=== PATIENT | female | born 1970 | race African-American/Black ===

== ENCOUNTER 2023-01-18 20:18 | Inpatient (IN) | payer OTHER ==
[~2023-01-18] VITALS: Ht 175.3 cm; Wt 199.1 kg
--- NOTE | 2023-01-18 20:27 | NUR ---
kaylie, from [facility], c/o nausea vomiting since yesterday. No episode of vomiting today. Shunt at R arm for dialysis. Pressure ulcers at both feet as verbalized by pt and it is wrapped with gauze and bandages. Positioned pt in comfortable positon. Vitals Checked. Attached to monitor.
--- NOTE | 2023-01-18 21:06 | NUR ---
Dr. Aguirre at bedside.
--- NOTE | 2023-01-18 21:13 | NUR ---
Covid swab done and sent to lab.
[2023-01-18] MEDS ORDERED: ONDANSETRON HCL/PF 4 MG/2 ML VIAL IV ONE (21:30)
--- NOTE | 2023-01-18 21:51 | NUR ---
Radiology at bedside.
[2023-01-18] MEDS ORDERED: ONDANSETRON HCL/PF 4 MG/2 ML VIAL ONE (21:52)
[2023-01-18] MEDS ORDERED: MORPHINE SULFATE INJ 2 MG/ML DISP.SYRIN IV ONE (22:00)
[2023-01-18] MEDS ORDERED: MORPHINE SULFATE INJ 4 MG/ML DISP.SYRIN ONE (22:19)
--- NOTE | 2023-01-18 22:40 | NUR ---
EKG at bedside done by EMT.
--- NOTE | 2023-01-18 22:42 | NUR ---
F/C INSERTED WITH NO BLOOD OUTPUT. WILL LEAVE THE F/C IN. PER PT SHE BARELY PRODUCING ANY URINE. MADE AWARE
--- NOTE | 2023-01-18 22:52 | NUR ---
Blood drawn and handed it to the Phleb at bedside.
[2023-01-18 23:00] LABS: BASOPHILS % (AUTO) 0.1 % (0.0-2.0); EOSINOPHILS % (AUTO) 0.3 % (0.0-6.0); HEMATOCRIT 30 % (33-45); HEMOGLOBIN 8.5 g/dL (11.5-14.8); LYMPHOCYTES # (AUTO) 0.9 K/uL (0.8-4.8); LYMPHOCYTES % (AUTO) 6.9 % (20.0-44.0); MEAN CORPUSCULAR HGB CONC 29 g/dl (31.0-36.0); MEAN CORPUSCULAR VOLUME 95 fL (82-100); MONOCYTES # (AUTO) 0.6 K/uL (0.1-1.30); MONOCYTES % (AUTO) 4.4 % (2.0-12.0); NEUTROPHILS # (AUTO) 12.1 K/uL (1.8-8.9); NEUTROPHILS % (AUTO) 88.3 % (43.0-81.0); PLATELET COUNT (AUTO) 134 K/uL (150-450); RED BLOOD CELL COUNT(AUTO) 3.11 MIL/uL (4.0-5.2); WHITE BLOOD COUNT (AUTO) 13.7 K/uL (4.3-11.0)
[2023-01-18 23:08] LABS: CALCIUM, SERUM 8.7 mg/dL (8.5-10.1); CARBON DIOXIDE 25 mmol/L (21-32); CHLORIDE 94 mmol/L (98-107); CREATININE 4.9 mg/dL (0.6-1.3); GLUCOSE 189 mg/dL (74-106); POTASSIUM 4.1 mmol/L (3.5-5.1); SODIUM SERUM 129 mmol/L (136-145); UREA NITROGEN, BLOOD 30 mg/dL (7-18)
[2023-01-18 23:13] LABS: ALANINE AMINOTRANSFERASE 11 U/L (12-78); ALBUMIN 2.4 g/dL (3.4-5.0); ALKALINE PHOSPHATASE 87 U/L (46-116); ASPARTATE AMINOTRANSFERASE 15 U/L (15-37); BILIRUBIN,DIRECT 0.4 mg/dL (0.0-0.2); TOTAL PROTEIN, SERUM 6.8 g/dL (6.4-8.2)
[2023-01-19] MEDS ORDERED: MORPHINE SULFATE INJ 2 MG/ML DISP.SYRIN IV ONE
[2023-01-19] MEDS ORDERED: MORPHINE SULFATE INJ 4 MG/ML DISP.SYRIN ONE (00:07)
[2023-01-19] MEDS ORDERED: ASCO500T10 PO (00:11)
[2023-01-19] MEDS ORDERED: SEVE800T8 PO (00:11)
[2023-01-19] MEDS ORDERED: TRAZ-257 PO (00:11)
[2023-01-19] MEDS ORDERED: LORA-259 PO (00:11)
[2023-01-19] MEDS ORDERED: CALC0.253 PO (00:11)
[2023-01-19] MEDS ORDERED: CARV12.52 PO (00:11)
[2023-01-19] MEDS ORDERED: CLOP75TA15 PO (00:11)
[2023-01-19] MEDS ORDERED: ATOR80TA PO (00:11)
[2023-01-19] MEDS ORDERED: MULT-754 PO (00:11)
[2023-01-19] MEDS ORDERED: OXYC15TA2 PO (00:11)
[2023-01-19] MEDS ORDERED: OMEP40CA21 PO (00:11)
[2023-01-19] MEDS ORDERED: SERT50TA PO (00:11)
[2023-01-19] MEDS ORDERED: LOSA25TA27 PO (00:11)
[2023-01-19] MEDS ORDERED: ACETAMINOPHEN 325 MG TABLET PO PRN ×2 (00:30→16:30)
[2023-01-19] MEDS ORDERED: NITROGLYCERIN 0.4 MG/TAB BOTTLE SL PRN (00:30)
[2023-01-19] MEDS ORDERED: MAG HYDROX/AL HYDROX/SIMETH 30 ML UDC PO PRN (00:30)
[2023-01-19] MEDS ORDERED: DOCUSATE SODIUM 100 MG CAPSULE PO PRN (00:30)
[2023-01-19] MEDS ORDERED: ONDANSETRON HCL/PF 4 MG/2 ML VIAL IVP PRN (00:30)
[2023-01-19] MEDS ORDERED: HEPARIN INFUSION/D5W 500 ML IV PRN (00:30)
[2023-01-19] MEDS ORDERED: CEFEPIME 1 GM VIAL ONE (01:15)
--- NOTE | 2023-01-19 01:23 | NUR ---
MANAGER PROCUREMENT AT PT'S BEDSIDE
[2023-01-19] MEDS ORDERED: IV NS 0.9% 500 ML BAG IV ONE (02:00)
[2023-01-19 02:12] LABS: HEMOGLOBIN 9.1 g/dL (11.5-14.8)
--- NOTE | 2023-01-19 02:20 | NUR ---
ROOM 112-1
--- NOTE | 2023-01-19 02:48 | NUR ---
RANDY VERGARA [phone]
[2023-01-19] MEDS ORDERED: VANCOMYCIN 2 GM in IV D5W 500 ML IV ONE (03:00)
[2023-01-19] MEDS ORDERED: VANCOMYCIN 1 GM VIAL ONE (03:24)
--- NOTE | 2023-01-19 04:22 | NUR ---
Report given to Jaswant TYLER.
--- NOTE | 2023-01-19 04:49 | NUR ---
Pt transfered to Room 112-1.
[2023-01-19 05:00] VITALS: BP 106/51
--- NOTE | 2023-01-19 05:00 | NUR ---
RN INTENSIVE CARE UNIT NOTES ADMITTED A 52 Y/O FEMALE PATIENT FROM ER VIA [facility] WITH DX OF SEPSIS 2ND DX NSTEMI WITH HX OF HD, HTN, HLD, INSOMNIA, DEPRESSION, A/O X 4 ON NASAL CANULA SATING AT 96%, AFEBRILE. NO S/S OF DISTRESS NOTED. IMMEDIATELY CONNECTED TO PREFORM PLATE MAKER SHOWING SINUS RHYTHM, VITAL SIGN TAKEN AND RECORDED. SKIN ASSESSMENT DONE, PICTURE TAKEN AND PLACED IT PT. CHART, NOTED WITH LEFT WRIST #20G PERIPHERAL LINE, FLUSHED WITH NS RUNNING WITH VANCO 2GRAM STARTED FROM ER. ALL SAFETY PRECAUTION PROVIDED. CALL LIGHT WITH IN REACH. CONTINUE TO MONITOR.
--- NOTE | 2023-01-19 05:30 | NUR ---
RN NOTES PATIENT STATED THAT SHE WANTS TO BE DNR/DNI, VERIFIED BY CHARGE NURSE LARA, CHARGE NURSE LARA ASKED THE PATIENT TO SIGNED THE POLST, PER PATIENT SHE'S NOT IN THE MOOD RIGHT NOW AND TIRED, SHE WANT TO REST FIRST.
[2023-01-19] MEDS: MORPHINE SULFATE INJ 2 MG/ML DISP.SYRIN IV PRN ×2 (05:47→18:10)
[2023-01-19 06:05] LABS: EOSINOPHILS % (AUTO) 0.3 % (0.0-6.0); HEMATOCRIT 28 % (33-45); HEMOGLOBIN 8.5 g/dL (11.5-14.8); LYMPHOCYTES # (AUTO) 1.1 K/uL (0.8-4.8); LYMPHOCYTES % (AUTO) 7.3 % (20.0-44.0); MEAN CORPUSCULAR HGB CONC 30 g/dl (31.0-36.0); MEAN CORPUSCULAR VOLUME 91 fL (82-100); MONOCYTES # (AUTO) 0.7 K/uL (0.1-1.30); MONOCYTES % (AUTO) 4.3 % (2.0-12.0); NEUTROPHILS # (AUTO) 13.7 K/uL (1.8-8.9); NEUTROPHILS % (AUTO) 88.1 % (43.0-81.0); PLATELET COUNT (AUTO) 168 K/uL (150-450); RED BLOOD CELL COUNT(AUTO) 3.09 MIL/uL (4.0-5.2); WHITE BLOOD COUNT (AUTO) 15.6 K/uL (4.3-11.0)
[2023-01-19 06:46] LABS: ALBUMIN 2.5 g/dL (3.4-5.0); BILIRUBIN,TOTAL 0.9 mg/dL (0.2-1.0); CALCIUM, SERUM 8.9 mg/dL (8.5-10.1); CREATININE 5.1 mg/dL (0.6-1.3); MAGNESIUM 2.2 mg/dL (1.8-2.4); PHOSPHORUS 3.3 mg/dL (2.5-4.9); POTASSIUM 4.3 mmol/L (3.5-5.1); TOTAL PROTEIN, SERUM 7.1 g/dL (6.4-8.2)
[2023-01-19 06:58] LABS: THYROID STIMULATING HORMONE 1.163 uIU/mL (0.358-3.74)
--- NOTE | 2023-01-19 07:35 | NUR ---
BREASTER OPENING NOTE PATIENT IN BED SLEEPING BUT EASILY AROUSABLE TO TOUCH AND VOICE, ALERT AND ORIENTED X4. AFEBRILE AND NOT IN ANY FORM OF ACUTE DISTRESS. ON ROOM AIR, TOLERATING WELL, NOT IN DISTRESS, ON TELE MONITORING SR 67. WITH IV ACCESS ON LEFT WRIST, PATENT AND INTACT. WITH INTACT JONES CATHETER, DRAINING CLEAR YELLOW URINE. SAFETY MEASURES IN PLACE. KEPT BED IN LOCKED AND IN LOW POSITION. SIDE RAILS UP X2, CALL LIGHT WITHIN REACH. PLAN OF CARE CONTINUE.
[2023-01-19 08:00] VITALS: BP 92/53
[2023-01-19] MEDS ORDERED: DIPH50CA4 PO (08:27)
[2023-01-19] MEDS ORDERED: AMIN30LI2 PO (08:27)
[2023-01-19] MEDS ORDERED: ACET-2605 PO (08:27)
[2023-01-19] MEDS ORDERED: ACET-868 PO (08:27)
[2023-01-19] MEDS ORDERED: FOLI0.8T23 PO (08:27)
[2023-01-19] MEDS ORDERED: ZINC1CAP3 PO (08:27)
[2023-01-19] MEDS ORDERED: ONDA-97 PO (08:27)
[2023-01-19] MEDS ORDERED: SIME80TA15 PO (08:27)
[2023-01-19] MEDS ORDERED: HYDR-500 PO (08:27)
[2023-01-19] MEDS: ASPIRIN 81 MG TAB.CHEW PO SCH (08:47)
--- NOTE | 2023-01-19 09:19 | NUR ---
MIDLINE NURSE INSERTED MIDLINE ON ROGELIO, NOTED PATENT AND INTACT.
--- NOTE | 2023-01-19 10:05 | NUR ---
WOUND CARE CONSULT: PT ADAMANTLY REFUSED SKIN ASSESSMENT. PT NOTED TO HAVE SPLINT/FREDERIC ORTHO DRESSING ON LEFT LOWER EXTREMITY, PRESENT ON ADMISSION. ADMISSION PHOTOS AND NURSING DOCUMENTATION INDICATES LEFT BUTTOCK/HIP FULL THICKNESS PRESSURE ULCER, RT LOWER EXTREMITY WOUNDS AND GLUTEAL FOLD EXCORIATIONS WITH SCARRING, PRESENT ON ADMISSION. DR PEÑALOZA CALLED FOR DPM CONSULT. DR MEDLEY CALLED FOR SURGICAL CONSULT. DISCUSSED SKIN PROTECTION RECOMMENDATIONS WITH NURSING STAFF. IN AGREEMENT WITH PLAN OF CARE. Addendum: 01/19/23 at 1014 by YASMIN MALCOLM WNDNU BARIMAX ETS AIR BED ORDERED TO ACCOMODATE PT'S WEIGHT AND GIRTH. IN AGREEMENT WITH PLAN OF CARE.
[2023-01-19] MEDS ORDERED: HEPARIN SODIUM,PORCINE/PF 50 UNIT/5 ML DISP.SYRIN IV ONE (10:30)
[2023-01-19] MEDS ORDERED: Z GUARD REMEDY 4 OZ OINT TP PRN (10:30)
[2023-01-19 10:33] LABS: CHOLESTEROL 50 mg/dL (<200); HDL CHOLESTEROL 13 mg/dL (40-60); LDL 14 mg/dL (0-99); TRIGLYCERIDES 139 mg/dL (30-150)
[2023-01-19] MEDS ORDERED: HEPARIN SODIUM, PORCINE 5000 UNITS/1 ML VIAL IV ONE (11:00)
[2023-01-19] MEDS: Z GUARD REMEDY 4 OZ OINT TP SCH (11:07)
[2023-01-19 12:00] VITALS: BP 101/56
[2023-01-19] MEDS: PROSOURCE / PROSTAT (PYXIS) 30 ML UDC GT SCH ×2 (12:03→16:07)
[2023-01-19] MEDS: ATORVASTATIN 10 MG TABLET PO SCH (12:03)
--- NOTE | 2023-01-19 13:20 | NUR ---
PATIENT SEEN BY RUBEN MERCHANT TEXTILE DESIGNER AT BEDSIDE, ALERT AND VERBALLY RESPONSIVE WHEN AWAKEN, PATIENT REFUSED BREAKFAST AND LUNCH, REFUSED TO BE TOUCH AND CLEAN, INFORMED RUBEN MERCHANT TEXTILE DESIGNER THAT PATIENT'S MOTHER WANTS TO SPEAK TO THE TEXTILE DESIGNER FOR UPDATE, PER RUBEN GRIFFIN SHE WILL CALL HER SAM.
[2023-01-19] MEDS ORDERED: HYDROCODONE/APAP 10/325MG TABLET PO PRN (14:00)
[2023-01-19 16:00] VITALS: BP 91/54
[2023-01-19] MEDS ORDERED: hydrOXYzine PAMOATE 25 MG CAPSULE PO PRN (16:30)
[2023-01-19] MEDS ORDERED: SIMETHICONE 80 MG TAB.CHEW PO PRN (16:30)
[2023-01-19] MEDS ORDERED: LORAZEPAM 1 MG TABLET PO PRN (16:30)
[2023-01-19] MEDS ORDERED: ONDANSETRON 4 MG TAB.RAPDIS PO PRN (16:30)
[2023-01-19] MEDS: CARVEDILOL 12.5 MG TABLET PO SCH (16:42)
[2023-01-19] MEDS ORDERED: oxyCODONE IR immediate release 5 MG PO SCH (17:00)
[2023-01-19] MEDS: SEVELAMER CARBONATE 800 MG TABLET PO SCH (17:34)
--- NOTE | 2023-01-19 17:44 | NUR ---
PATIENT COMPLAINING OF TONGUE AND THROAT PAIN, PER PATIENT SHE CAN'T SWALLOW PILLS AND FOOD DUE TO PAIN, RUBEN GRIFFIN NOTIFIED WITH ORDER NYSTATIN 100,000 UNITS SWISH AND AND SPIT Q 6HRS, PATIENT REQUESTING ZOFRAN TO CHANGED TO IV AND PAIN MEDICATION FOR GENERALIZED PAIN, WITH ORDER FROM RUBEN MERCHANT NP ZOFRAN 4MG IV Q8H PRN AND MORPHINE 1 MG IV Q6H PRN, NOTED AND CARRIED OUT. PLAN OF CARE CONTINUE. NOTED PATIENT HEPARIN DRIP KEEP ON BEEPING DUE TO PATIENT KEEP BENDING HER ARM, EDUCATE PATIENT.
--- NOTE | 2023-01-19 18:04 | NUR ---
RECEIVED PTT RESULT 39.6, INCREASE HEPARIN DRIP RATE TO 200UNITS/HR= 1400UNITS/HR S PER PROTOCOL, PLAN OF CARE CONTINUE.
[2023-01-19] MEDS: ONDANSETRON HCL/PF 4 MG/2 ML VIAL IV PRN (18:09)
--- NOTE | 2023-01-19 18:49 | NUR ---
INFORMATION TECHNOLOGY ADVISOR CLOSING NOTE PATIENT IN BED AWAKE, EATING SOUP, ALERT AND ORIENTED X4. AFEBRILE AND NOT IN ANY FORM OF ACUTE DISTRESS. ON 2LPM 02, TOLERATING WELL, NOT IN DISTRESS, ON TELE MONITORING SR 72, ROGELIO MIDLINE NOTED PATENT AND INTACT, FLUSHES WELL, WITH HEPARIN DRIP RUNNING AT 28ML/HR. WITH INTACT JONES CATHETER, PATIENT IS ANURIC, NOTED RIGHT ARM AV FISTULA AND LEFT UPPER CHEST PERMACATH, DRESSING C/D/I. SAFETY MEASURES IN PLACE. KEPT BED IN LOCKED AND IN LOW POSITION. SIDE RAILS UP X2, CALL LIGHT WITHIN REACH. WILL ENDORSE TO NIGHT NURSE FOR GIULIA.
[2023-01-19 20:00] VITALS: BP 122/56
[2023-01-19] MEDS: oxyCODONE IR immediate release 5 MG PO SCH (21:00)
[2023-01-19] MEDS: TRAZODONE 50 MG TABLET PO SCH (21:56)
[2023-01-19] MEDS: ATORVASTATIN 40 MG TABLET PO SCH (21:57)
--- NOTE | 2023-01-19 21:57 | NUR ---
RN NOTES: PT STRONGLY REFUSED ALL THE PO MEDS. OFFERED SEVERAL TIMES BUT STILL REFUSED. OXYCODONE, DESYREL AND LIPITOR NOT GIVEN. COMPLAINING OF TONGUE AND THROAT PAIN, UNABLE TO SWALLOW. MORPHINE GIVEN ON PREVIOUS SHIFT. WILL CONTINUE TO MONITOR
[2023-01-19] MEDS ORDERED: MUPIROCIN OINT 2% 22 GM TUBE ONE (23:31)
[2023-01-19] MEDS: MUPIROCIN OINT 2% 22 GM TUBE TP SCH (23:48)
--- NOTE | 2023-01-19 23:51 | NUR ---
RN NOTES: NOTIFIED DR. PILLAI THAT PT IS ON HEPARIN DRIP WHICH IS RUNNING ON ROGELIO MIDLINE AND SHE HAS AV SHUNT ON RT ARM. SHE IS SCHEDULE FOR PTT LEVEL 2355. WHICH SIDE SHOULD DRAW THE LAB? CALLED LAB AND TALKED THE PATRY. SHE TOLD ME TO TURNED OF THE HEPARIN DRIP FOR 15 MINUTES AND THEN THEY CAN DRAW THE BLOOD ON THE SAME SIDE WHERE THE HEPARIN DRIP WAS RUNNING. TURNED OFF THE HEPARIN. MADE AWARE DR. PILLAI.
[2023-01-20] VITALS: BP 128/59
--- NOTE | 2023-01-20 00:11 | NUR ---
RN NOTES: RESTARTED THE HEPARIN DRIP
[2023-01-20] MEDS: CEFEPIME 1 GM in IV D5W 50 ML IV SCH (00:33)
[2023-01-20] MEDS: NYSTATIN (PYXIS) 500,000 UNIT/5 ML ORAL.SUSP PO PRN ×2 (00:37→12:12)
--- NOTE | 2023-01-20 00:45 | NUR ---
RN NOTES: NEW SALINE LOCK INSERTED ON LEFT HAND#22G INTACT AND PATENT. NO S/S OF INFILTRATIONS. NYSTATIN 100,000UNITS/1 ML GIVEN. PT TOLERATED WELL. WILL CONTINUE TO MONITOR
--- NOTE | 2023-01-20 02:10 | NUR ---
RN NOTES: RECEIVED LAB RESULT- PTT 32.7. ORDER IS BOLUS 6000 UNITS AND INCREASED THE DOSE TO 300 UNITS/HR. NOW NEW DOSE IS 1700 UNITS/HR. NEW PTT LEVEL DRAW WILL BE AT 0810. WILL CONTINUE TO MONITOR
[2023-01-20] MEDS ORDERED: HEPARIN SODIUM, PORCINE 5000 UNITS/1 ML VIAL IV ONE (02:30)
[2023-01-20] MEDS: MORPHINE SULFATE INJ 2 MG/ML DISP.SYRIN IV PRN ×3 (02:44→21:28)
--- NOTE | 2023-01-20 02:52 | NUR ---
RN NOTES: PT C/O GENERALIZED BODY PAIN, MORPHINE 0.5 ML GIVEN AND PT TOLERATED WELL. WILL CONTINUE TO MONITOR
[2023-01-20 04:00] VITALS: BP 114/53
--- NOTE | 2023-01-20 06:30 | NUR ---
STAMP MOUNTER CLOSING NOTES: PATIENT IN BED AWAKE, ALERT AND ORIENTED X4 AND VERBALLY RESPONSIVE. BREATHING EVEN AND UNLABORED. ON 2L/MIN VIA N/C AND PT TOLERATED WELL. O2 SAT 98%. ON TELE MONITORING SHOWS SR. IV ACCESS ON ROGELIO MIDLINE AND LT HAND#22 G INTACT NOTED PATENT, RUNNING HEPARIN DRIP AT 1700 UNITS/HR. JONES CATHETER IN PLACE. NO URINE OUTPUT. PATIENT IS ANURIC, NOTED RIGHT ARM AV FISTULA AND LEFT UPPER CHEST PERMACATH NOTED DRY DRESSING. ALL SAFETY MEASURES IN PLACE. BED IN LOW POSITION AND LOCKED. SIDE RAILS UP X3, PLACE CALL LIGHT WITHIN REACH. WILL CONTINUE TO MONITOR
[2023-01-20 07:22] LABS: BASOPHILS % (AUTO) 0.1 % (0.0-2.0); HEMATOCRIT 27 % (33-45); HEMOGLOBIN 8.2 g/dL (11.5-14.8); LYMPHOCYTES % (AUTO) 6.4 % (20.0-44.0); MEAN CORPUSCULAR HGB CONC 30 g/dl (31.0-36.0); MEAN CORPUSCULAR VOLUME 90 fL (82-100); MONOCYTES # (AUTO) 0.8 K/uL (0.1-1.30); MONOCYTES % (AUTO) 4.8 % (2.0-12.0); NEUTROPHILS # (AUTO) 14.1 K/uL (1.8-8.9); NEUTROPHILS % (AUTO) 87.7 % (43.0-81.0); PLATELET COUNT (AUTO) 172 K/uL (150-450); RED BLOOD CELL COUNT(AUTO) 3.01 MIL/uL (4.0-5.2)
[2023-01-20] MEDS: PANTOPRAZOLE 40 MG TABLET.DR PO SCH (07:30)
--- NOTE | 2023-01-20 07:30 | NUR ---
RN NOTE RECEIVED PATIENT IN BED RESTING ALERT ORIENTED X4 VERBALLY RESPONSIVE ON 2L OXYGEN O2:98% IV SITE IS ON LEFT HAND INTACT PATENT,MIDLINE IS ON LEFT UPPER ARM HARD TO FLUSH,LEFT UPPER CHEST HD PERM-CATH,ON HEPARIN DRIP,ANURIC,SAFETY MEASURE IMPLEMENT BED NOT WORKING CALL LIGHT WITHIN REACH CONTINUE TO MONITOR.
[2023-01-20 07:40] LABS: ALBUMIN 2.4 g/dL (3.4-5.0); BILIRUBIN,TOTAL 0.8 mg/dL (0.2-1.0); CALCIUM, SERUM 8.6 mg/dL (8.5-10.1); CREATININE 5.9 mg/dL (0.6-1.3); MAGNESIUM 2.2 mg/dL (1.8-2.4); PHOSPHORUS 3.4 mg/dL (2.5-4.9); POTASSIUM 4.3 mmol/L (3.5-5.1); TOTAL PROTEIN, SERUM 6.8 g/dL (6.4-8.2)
[2023-01-20 08:00] VITALS: BP 101/41
[2023-01-20] MEDS: PROSOURCE / PROSTAT (PYXIS) 30 ML UDC GT SCH ×3 (08:00→16:15)
[2023-01-20] MEDS: SEVELAMER CARBONATE 800 MG TABLET PO SCH ×4 (08:00→18:00)
--- NOTE | 2023-01-20 08:00 | NUR ---
RN NOTE CALLED [facility], BED NOT WORKING THEY SAID WILL PUT ORDER FOR FIX CONTINUE TO MONITOR
[2023-01-20] MEDS: ASPIRIN 81 MG TAB.CHEW PO SCH ×2 (08:50)
[2023-01-20] MEDS: LOSARTAN POTASSIUM 25 MG TABLET PO SCH (08:51)
[2023-01-20] MEDS: CARVEDILOL 12.5 MG TABLET PO SCH ×2 (08:51→16:16)
[2023-01-20] MEDS: ATORVASTATIN 10 MG TABLET PO SCH (08:55)
[2023-01-20] MEDS: oxyCODONE IR immediate release 5 MG PO SCH ×2 (08:56→20:04)
[2023-01-20] MEDS: VIT B CMPLX 3/FA/VIT C/BIOTIN 1 TAB TABLET PO SCH (08:56)
[2023-01-20] MEDS: CLOPIDOGREL BISULFATE 75 MG TABLET PO SCH (08:56)
[2023-01-20] MEDS: ASCORBIC ACID 500 MG TABLET PO SCH (08:57)
[2023-01-20] MEDS: ACETAMINOPHEN ES 500 MG TABLET PO SCH (08:57)
[2023-01-20] MEDS: PROSOURCE / PROSTAT (PYXIS) 30 ML UDC PO SCH (08:57)
[2023-01-20] MEDS: CALCITRIOL 0.25 MCG CAPSULE PO SCH (08:57)
[2023-01-20] MEDS: SERTRALINE HCL 50 MG TABLET PO SCH (08:58)
[2023-01-20] MEDS: HEPARIN SODIUM, PORCINE 5000 UNITS/1 ML VIAL SQ SCH ×3 (09:00→20:04)
[2023-01-20] MEDS: Z GUARD REMEDY 4 OZ OINT TP SCH ×2 (09:00→09:06)
--- NOTE | 2023-01-20 09:00 | NUR ---
RN NOTE [employer] [employer] CAME AND FIXED THE BED,ELEVATE HEAD OF THE BED CONTINUE TO MONITOR,SHE REFUSED ALL PO MEDS NOTIFIED DNA SEQUENCING ASSOCIATE RUBEN MERCHANT CONTINUE TO MONITOR.
[2023-01-20] MEDS: MUPIROCIN OINT 2% 22 GM TUBE TP SCH ×2 (09:04→20:03)
[2023-01-20 12:00] VITALS: BP 93/56
[2023-01-20] MEDS: VANCOMYCIN POST DIALYSIS 500MG IV PRN ×2 (12:09)
[2023-01-20 16:00] VITALS: BP 103/49
--- NOTE | 2023-01-20 18:46 | NUR ---
RN CLOSING NOTE PATIENT IN BED AWAKE, EATING SOUP, ALERT AND ORIENTED X4. AFEBRILE AND NOT IN ANY FORM OF ACUTE DISTRESS. HAD HD TODAY AND 2 LITERS WERFE REMOVED ON 2LPM 02, TOLERATING WELL, NOT IN DISTRESS, ON TELE MONITORING SR 72, ROGELIO MIDLINE NOTED PATENT AND INTACT, FLUSHES WELL, HEPARIN DRIP DCD BY MD AND CHANGED IT TO SC BUT RESIDENT DECLINED TO RECEIVE MEDS DESPITE EXPLANATION AND ENCOURAGEMENT. WITH INTACT JONES CATHETER, PATIENT IS ANURIC, NOTED RIGHT ARM AV FISTULA AND LEFT UPPER CHEST PERMACATH, DRESSING C/D/I. SAFETY MEASURES IN PLACE. KEPT BED IN LOCKED AND IN LOW POSITION. SIDE RAILS UP X2, CALL LIGHT WITHIN REACH. WILL ENDORSE TO NIGHT NURSE FOR GIULIA.
--- NOTE | 2023-01-20 19:30 | NUR ---
RN Opening Notes Received pt in bed, awake, using iPad. AOx4, able to make needs known. On NC 2LPM and tolerating well. No SOB noted. No s/sx of respiratory distress noted. IV Access in ROGELIO midline #18G. IV is intact, patent, and flushing well. Safety precautions in place: bed in lowest, locked position, siderails upX2, and brakes on. Table and call light within reach. All needs met at this time.
[2023-01-20 20:00] VITALS: BP 110/52
--- NOTE | 2023-01-20 20:04 | NUR ---
RN NOTES Patient refused meds because "it is too painful to swallow." Refused bactroban. Explained risks and benefits but patient still refused.
[2023-01-20] MEDS: TRAZODONE 50 MG TABLET PO SCH (21:27)
[2023-01-20] MEDS: ATORVASTATIN 40 MG TABLET PO SCH (21:27)
--- NOTE | 2023-01-20 21:28 | NUR ---
RN Notes Administered morphine for pain per MD order. VS WNL.
[2023-01-21] VITALS (12 sets, daily range): BP systolic 101–125; BP diastolic 53–69
[2023-01-21] MEDS: CEFEPIME 1 GM in IV D5W 50 ML IV SCH ×2 (00:18→23:59)
--- NOTE | 2023-01-21 06:47 | NUR ---
RN Closing Notes Pt in bed, asleep, awakens to verbal stimuli. AOx4, able to make needs known. On NC 2LPM and tolerating well. No SOB noted. No s/sx of respiratory distress noted. IV Access in ROGELIO midline #18G. IV is intact, patent, and flushing well. All orders carried out. All needs met. Pt kept clean and dry. Treated pain once during shift. Safety precautions in place: bed in lowest, locked position, siderails upX2, and brakes on. Table and call light within reach. Will endorse to oncoming shift for GIULIA.
[2023-01-21 07:17] LABS: BASOPHILS % (AUTO) 0.2 % (0.0-2.0); EOSINOPHILS % (AUTO) 2.3 % (0.0-6.0); HEMATOCRIT 23 % (33-45); LYMPHOCYTES # (AUTO) 1.2 K/uL (0.8-4.8); LYMPHOCYTES % (AUTO) 9.7 % (20.0-44.0); MEAN CORPUSCULAR HGB CONC 31 g/dl (31.0-36.0); MEAN CORPUSCULAR VOLUME 90 fL (82-100); MONOCYTES # (AUTO) 0.6 K/uL (0.1-1.30); MONOCYTES % (AUTO) 5.3 % (2.0-12.0); NEUTROPHILS % (AUTO) 82.5 % (43.0-81.0); PLATELET COUNT (AUTO) 150 K/uL (150-450); RED BLOOD CELL COUNT(AUTO) 2.51 MIL/uL (4.0-5.2); WHITE BLOOD COUNT (AUTO) 12.1 K/uL (4.3-11.0)
[2023-01-21 07:19] LABS: CALCIUM, SERUM 8.3 mg/dL (8.5-10.1); CREATININE 5.7 mg/dL (0.6-1.3); POTASSIUM 3.9 mmol/L (3.5-5.1)
[2023-01-21] MEDS: PANTOPRAZOLE 40 MG TABLET.DR PO SCH (07:30)
--- NOTE | 2023-01-21 07:40 | NUR ---
RN NOTE RECEIVED PATIENT IN BED RESTING ALERT ORIENTED X4 VERBALLY RESPONSIVE ON 2L OXYGEN VIA NASAL CANNULA,O2:98% IV SITE IS ON RIGHT ARM AV SHUNT,LEFT UPPER ARM MIDLINE,LEFT FOREARM MIDLINE,LEFT PERM-CATH FOR HD,INTACT PATENT SAFETY MEASURE IMPLEMENT BED IN LOW POSITION AND LOCKED,HEAD OF THE BED ELEVATED,CALL LIGHT WITHIN REACH,JONES CATH IN PLACE NO URINE NOTED CONTINUE TO MONITOR.
[2023-01-21] MEDS: SEVELAMER CARBONATE 800 MG TABLET PO SCH ×3 (08:00→18:00)
[2023-01-21] MEDS: PROSOURCE / PROSTAT (PYXIS) 30 ML UDC GT SCH ×3 (08:00→17:00)
[2023-01-21 08:21] LABS: HEMOGLOBIN 6.9 g/dL (11.5-14.8)
--- NOTE | 2023-01-21 08:49 | NUR ---
tech called RN and restaurant supervisor but no answer. Patient does not fit in the scanner for the CT ordered.
[2023-01-21] MEDS: CLOPIDOGREL BISULFATE 75 MG TABLET PO SCH (09:00)
[2023-01-21] MEDS: ASPIRIN 81 MG TAB.CHEW PO SCH ×2 (09:00→09:27)
[2023-01-21] MEDS: PROSOURCE / PROSTAT (PYXIS) 30 ML UDC PO SCH (09:00)
[2023-01-21] MEDS: CARVEDILOL 12.5 MG TABLET PO SCH ×2 (09:00→17:00)
[2023-01-21] MEDS: HEPARIN SODIUM, PORCINE 5000 UNITS/1 ML VIAL SQ SCH ×2 (09:00→21:00)
[2023-01-21] MEDS: LOSARTAN POTASSIUM 25 MG TABLET PO SCH (09:00)
[2023-01-21] MEDS: ASCORBIC ACID 500 MG TABLET PO SCH (09:00)
[2023-01-21] MEDS: CALCITRIOL 0.25 MCG CAPSULE PO SCH (09:26)
[2023-01-21] MEDS: ACETAMINOPHEN ES 500 MG TABLET PO SCH (09:26)
[2023-01-21] MEDS: VIT B CMPLX 3/FA/VIT C/BIOTIN 1 TAB TABLET PO SCH (09:39)
[2023-01-21] MEDS: oxyCODONE IR immediate release 5 MG PO SCH ×2 (09:40→21:36)
[2023-01-21] MEDS: MUPIROCIN OINT 2% 22 GM TUBE TP SCH ×2 (09:40→21:50)
[2023-01-21] MEDS: SERTRALINE HCL 50 MG TABLET PO SCH (09:40)
[2023-01-21] MEDS: Z GUARD REMEDY 4 OZ OINT TP SCH (09:40)
[2023-01-21 10:37] LABS: EOSINOPHILS % (MANUAL) 2 % (0-4); LYMPHOCYTES % (MANUAL) 7 % (16-48); MONOCYTES % (MANUAL) 1 % (0-11.0); NEUTROPHILS % (MANUAL) 90 (42-76)
[2023-01-21] MEDS ORDERED: NEPRO VAN 237 ML CAN PO PRN (12:00)
[2023-01-21] MEDS: MORPHINE SULFATE INJ 2 MG/ML DISP.SYRIN IV PRN ×2 (13:06→21:54)
[2023-01-21] MEDS ORDERED: BISACODYL SUPP (10 MG) 10 MG/SUPP.RECT SUPP.RECT RC PRN (14:30)
[2023-01-21] MEDS ORDERED: MAGNESIUM HYDROXIDE 30 ML UDC PO ONE (14:30)
[2023-01-21] MEDS ORDERED: SIMETHICONE 80 MG TAB.CHEW PO PRN (15:00)
[2023-01-21] MEDS: ONDANSETRON HCL/PF 4 MG/2 ML VIAL IV PRN (15:48)
--- NOTE | 2023-01-21 18:44 | NUR ---
RN NOTE PATIENT REMAINS ALERT ORIENTED X4 VERBALLY RESPONSIVE NO SOB NOT ACUTE DISTRESS NOTED,ONE UNIT RED BLOOD CELLS GIVEN MD ORDERED,PATIENT REFUSED TO TURNED AND REPOSITIONED,KEPT HEAD OF THE BED ELEVATED ALL THE TIME,WILL ENDORSE NEXT COMING SHIFT FOR CONTINUATION OF CARE.
[2023-01-21] MEDS: TRAZODONE 50 MG TABLET PO SCH (21:37)
[2023-01-21] MEDS: ATORVASTATIN 40 MG TABLET PO SCH (21:37)
[2023-01-22] VITALS: BP 117/72
[2023-01-22 04:00] VITALS: BP 121/67
[2023-01-22 07:08] LABS: BASOPHILS % (AUTO) 0.2 % (0.0-2.0); EOSINOPHILS % (AUTO) 2.5 % (0.0-6.0); HEMATOCRIT 27 % (33-45); HEMOGLOBIN 8.4 g/dL (11.5-14.8); LYMPHOCYTES # (AUTO) 1.1 K/uL (0.8-4.8); LYMPHOCYTES % (AUTO) 9.2 % (20.0-44.0); MEAN CORPUSCULAR HGB CONC 31 g/dl (31.0-36.0); MEAN CORPUSCULAR VOLUME 90 fL (82-100); MONOCYTES # (AUTO) 0.6 K/uL (0.1-1.30); MONOCYTES % (AUTO) 4.8 % (2.0-12.0); NEUTROPHILS # (AUTO) 10.3 K/uL (1.8-8.9); NEUTROPHILS % (AUTO) 83.3 % (43.0-81.0); PLATELET COUNT (AUTO) 174 K/uL (150-450); RED BLOOD CELL COUNT(AUTO) 3.03 MIL/uL (4.0-5.2); WHITE BLOOD COUNT (AUTO) 12.3 K/uL (4.3-11.0)
[2023-01-22 07:14] LABS: CALCIUM, SERUM 8.5 mg/dL (8.5-10.1); CREATININE 6.2 mg/dL (0.6-1.3); POTASSIUM 4.1 mmol/L (3.5-5.1)
--- NOTE | 2023-01-22 07:25 | NUR ---
RN MED SURGE NOTE: ALERT X3. UNLABORED BREATHING WITH 03 2 LPM NC. IN ON LEFT UPPER ARM , LT AC, AND LEFT FOREARM. NO S/S OF COMPLICATIONS. LEFT CHEST WALL HD CATHETER WITH CLEAN DRESSING. RIGHT ARM AV SHUNT POSITIVE FOR BRUIT AND THRILL. JONES CATHETER IN PLACE. LEFT LEG/FOOT WITH PARTIAL IMMOBILIZER CAST WITH FREDERIC BANDAGE. CIRCULATION IS WITHIN NORMAL. GOOD CAPILLARY REFILL. RIGHT LOWER LEG WITH CLEAN DRESSING. HOB ELEVATED. BILATERAL HALF SIDE RAILS UP X2. BED IN LOW POSITION, LOCKED, EXIT ALARM ON. CALL LIGHT IN REACH.
--- NOTE | 2023-01-22 07:56 | NUR ---
0600 CLIENT ASLEEP ON BED IN NO OBVIOUS RESP NOR CARDIAC DISTRESS. MIDLINE INTACT AND PATENT TO LEFT FA. SITE UNREMARKABLE. ATTEMPTED TO DO AM LABS AND WAS UNSUCCESSFUL. FREDERIC WRAP INTACT TO LEFT LOWER LEG. SHUNT INTACT AND POSITIVE FOR BRUIT AND THRILL TO RIGHT UPPER ARM. MAINTAINED ON ANTIBIOTICS WITHOUT ANY ADVERSE REACTIONS. MORPHINE. 1MG GIVEN IV FOR C/O DISCOMFORT TO LEFT LEG AND BACK X2. 02 2L/PER NASAL CANNULA ON. FREDERIC WRAP TO RIGHT LOWER LEG. MADE COMFORTABLE . WILL CONTINUE TO MONITOR FOR SAFETY. ADVISED CLIENT TO MAKE NURSE AWARE IF ANY UNTOWARD MANIFESTATIONS OCCURS. CLIENT VOICED UNDERSTANDING OF SAME. IN NO DISTRESS. AT THIS TIME.
[2023-01-22 08:00] VITALS: BP 104/55
[2023-01-22] MEDS: PROSOURCE / PROSTAT (PYXIS) 30 ML UDC GT SCH ×3 (08:00→18:31)
[2023-01-22] MEDS: PANTOPRAZOLE 40 MG TABLET.DR PO SCH (08:39)
[2023-01-22] MEDS: ASCORBIC ACID 500 MG TABLET PO SCH (09:00)
--- NOTE | 2023-01-22 09:44 | NUR ---
ALTEPLASE CAHTFLO 4MG ADMINISTERED BY HD NURSE DUE TO HD CATHETER OCCLUSION.
[2023-01-22] MEDS ORDERED: ALTEPLASE CATHFLO 2 MG/VIAL XX ONE (10:00)
[2023-01-22] MEDS: SERTRALINE HCL 50 MG TABLET PO SCH (10:30)
[2023-01-22] MEDS: LOSARTAN POTASSIUM 25 MG TABLET PO SCH (10:30)
[2023-01-22] MEDS: CALCITRIOL 0.25 MCG CAPSULE PO SCH (10:31)
[2023-01-22] MEDS: ACETAMINOPHEN ES 500 MG TABLET PO SCH (10:31)
[2023-01-22] MEDS: SEVELAMER CARBONATE 800 MG TABLET PO SCH ×3 (10:31→18:27)
[2023-01-22] MEDS: CLOPIDOGREL BISULFATE 75 MG TABLET PO SCH (10:32)
[2023-01-22] MEDS: ASPIRIN 81 MG TAB.CHEW PO SCH (10:32)
[2023-01-22] MEDS: VIT B CMPLX 3/FA/VIT C/BIOTIN 1 TAB TABLET PO SCH (10:32)
[2023-01-22] MEDS: CARVEDILOL 12.5 MG TABLET PO SCH ×2 (10:33→18:28)
[2023-01-22] MEDS: HEPARIN SODIUM, PORCINE 5000 UNITS/1 ML VIAL SQ SCH ×3 (10:51→21:35)
[2023-01-22] MEDS: MUPIROCIN OINT 2% 22 GM TUBE TP SCH ×2 (11:21→21:36)
[2023-01-22] MEDS: PROSOURCE / PROSTAT (PYXIS) 30 ML UDC PO SCH (11:25)
[2023-01-22] MEDS: Z GUARD REMEDY 4 OZ OINT TP SCH (11:27)
[2023-01-22 16:00] VITALS: BP 151/89
--- NOTE | 2023-01-22 18:30 | NUR ---
RN CLOSING NOTE: RUBEN MERCHANT MATH COACH INFORMED PATIENT JONES CATHETER DISLODGED, PATIENT ON PAIN. PATIENT REFUSED TO HAVE IT PUT BACK IN. ALERT AND ORIENTED TIMES 4. UNLABORED BREATHING. IV LINES WITH NO S/S OF COMPLICATIONS. RIGHT ARM AV SHUNT POSITIVE FOR BRUIT AND THRILL. HOB ELEVATED, BED IN LOCKED, IN LOW POSITION, BARIATRIC BED. BILATERAL HALF SIDE RAILS UP X2. CALL LIGHT IN REACH PRN NORCO GIVEN FOR C/O PAIN. EATING DINNER NOW.
[2023-01-22] MEDS: VANCOMYCIN POST DIALYSIS 500MG IV PRN ×2 (18:57)
--- NOTE | 2023-01-22 19:00 | NUR ---
LOG DATA TECHNICIAN CLOSING NOTE: ALERT TIMES ONE. UNLABORED BREATHING AT ROOM AIR, SATING AT 95 %. EDUCATION RESEARCH ANALYST SINUS TACHY 122. KEPT CLEAN AND COMFORTABLE. ABLE TO TOLERATE CLEAR LIQUID DIET WELL. NO N/V. HOB ELEVATED, BILATERAL HALF SIDE RAILS UP X2. BED IN LOW POSITION, LOCKED, EXIT ALARM ON. CALL LIGHT IN REACH. Addendum: 01/22/23 at 1920 by MARCO SUMMERS RN CLARIFICATION. WRONG ENTRY.
--- NOTE | 2023-01-22 19:35 | NUR ---
MS RN OPENING NOTE RECEIVED PATIENT RESTING IN BED. PT ALERT ORIENTED X4, ABLE TO VERBALIZE NEEDS. ON 2L OXYGEN VIA NASAL CANNULA. HAS AV SHUNT TO RIGHT ARM, AND LEFT UPPER ARM MIDLINE, LEFT FOREARM MIDLINE, LEFT PERM-CATH FOR HD,INTACT PATENT. SAFETY MEASURE IMPLEMENT BED IN LOW POSITION AND LOCKED, HEAD OF THE BED ELEVATED,CALL LIGHT WITHIN REACH. WILL CONTINUE TO MONITOR PT.
[2023-01-22 20:00] VITALS: BP 124/53
--- NOTE | 2023-01-22 21:00 | NUR ---
MS RN NOTE PT REFUSES HEPARIN. EDUCATION GIVEN ON ACTION OF MED, AND ON IMPORTANCE OF TAKING HEPARIN. PT STILL DECLINES IT.
[2023-01-22] MEDS: oxyCODONE IR immediate release 5 MG PO SCH (21:33)
[2023-01-22] MEDS: TRAZODONE 50 MG TABLET PO SCH (22:39)
[2023-01-22] MEDS: ATORVASTATIN 40 MG TABLET PO SCH (22:40)
[2023-01-22] MEDS: MORPHINE SULFATE INJ 2 MG/ML DISP.SYRIN IV PRN (23:32)
[2023-01-22] MEDS: CEFEPIME 1 GM in IV D5W 50 ML IV SCH (23:34)
[2023-01-23] VITALS: BP 124/53
--- NOTE | 2023-01-23 00:30 | NUR ---
RN NOTE PT REPORTS GENERALIZED PAIN. MORPHINE ADMINISTERED TO PT.
[2023-01-23 04:00] VITALS: BP 103/71
--- NOTE | 2023-01-23 06:58 | NUR ---
MS RN CLOSING NOTE LEFT PATIENT RESTING IN BED. PT ALERT ORIENTED X4, ABLE TO VERBALIZE NEEDS. ON 2L OXYGEN VIA NASAL CANNULA. HAS AV SHUNT TO RIGHT ARM, AND LEFT UPPER ARM MIDLINE, LEFT FOREARM MIDLINE, LEFT PERM-CATH FOR HD,INTACT PATENT. PT REFUSES TO BE CLEANED THIS MORNING. SHE REFUSES FOR SKIN ASSESSMENT, AND PICTURES TO BE TAKEN. SHE ALSO REFUSES BLOOD TO BE DRAWN FOR LABS. SAFETY MEASURE IMPLEMENT BED IN LOW POSITION AND LOCKED, HEAD OF THE BED ELEVATED,CALL LIGHT WITHIN REACH. WILL ENDORSE PT TO AM SHIFT NURSE FOR GIULIA.
[2023-01-23] MEDS: SEVELAMER CARBONATE 800 MG TABLET PO SCH ×3 (07:20→17:05)
[2023-01-23] MEDS: PANTOPRAZOLE 40 MG TABLET.DR PO SCH (07:20)
[2023-01-23] MEDS: PROSOURCE / PROSTAT (PYXIS) 30 ML UDC GT SCH ×3 (07:20→16:20)
[2023-01-23 07:40] LABS: BASOPHILS % (AUTO) 0.2 % (0.0-2.0); EOSINOPHILS % (AUTO) 2.3 % (0.0-6.0); HEMATOCRIT 28 % (33-45); HEMOGLOBIN 8.4 g/dL (11.5-14.8); LYMPHOCYTES # (AUTO) 1.1 K/uL (0.8-4.8); LYMPHOCYTES % (AUTO) 8.9 % (20.0-44.0); MEAN CORPUSCULAR HGB CONC 31 g/dl (31.0-36.0); MEAN CORPUSCULAR VOLUME 91 fL (82-100); MONOCYTES # (AUTO) 0.5 K/uL (0.1-1.30); MONOCYTES % (AUTO) 3.8 % (2.0-12.0); NEUTROPHILS # (AUTO) 10.7 K/uL (1.8-8.9); NEUTROPHILS % (AUTO) 84.8 % (43.0-81.0); PLATELET COUNT (AUTO) 168 K/uL (150-450); RED BLOOD CELL COUNT(AUTO) 3.02 MIL/uL (4.0-5.2); WHITE BLOOD COUNT (AUTO) 12.6 K/uL (4.3-11.0)
[2023-01-23 07:59] LABS: CALCIUM, SERUM 8.3 mg/dL (8.5-10.1); CREATININE 6.8 mg/dL (0.6-1.3); POTASSIUM 4.3 mmol/L (3.5-5.1)
[2023-01-23 08:00] VITALS: BP 113/70
[2023-01-23] MEDS: ACETAMINOPHEN ES 500 MG TABLET PO SCH (08:37)
[2023-01-23] MEDS: CALCITRIOL 0.25 MCG CAPSULE PO SCH (08:38)
[2023-01-23] MEDS: SERTRALINE HCL 50 MG TABLET PO SCH (08:38)
[2023-01-23] MEDS: VIT B CMPLX 3/FA/VIT C/BIOTIN 1 TAB TABLET PO SCH (08:38)
[2023-01-23] MEDS: ASCORBIC ACID 500 MG TABLET PO SCH (08:38)
[2023-01-23] MEDS: CLOPIDOGREL BISULFATE 75 MG TABLET PO SCH (08:39)
[2023-01-23] MEDS: MUPIROCIN OINT 2% 22 GM TUBE TP SCH ×2 (08:40→21:36)
[2023-01-23] MEDS: ASPIRIN 81 MG TAB.CHEW PO SCH (08:40)
[2023-01-23] MEDS: oxyCODONE IR immediate release 5 MG PO SCH ×2 (09:00→21:27)
[2023-01-23] MEDS: HEPARIN SODIUM, PORCINE 5000 UNITS/1 ML VIAL SQ SCH ×2 (09:00→21:28)
[2023-01-23] MEDS: Z GUARD REMEDY 4 OZ OINT TP SCH (09:19)
--- NOTE | 2023-01-23 09:25 | NUR ---
PATIENT REFUSED HEPARIN SHOT
--- NOTE | 2023-01-23 09:44 | NUR ---
PATIENT REFUSED OXYCODONE, PATIENT DENIES PAIN.
[2023-01-23] MEDS ORDERED: ASPI-1169 PO (10:06)
[2023-01-23] MEDS ORDERED: HEPA50008 SQ (10:06)
[2023-01-23] MEDS ORDERED: DOCU100C36 PO (10:06)
[2023-01-23] MEDS ORDERED: BISA10SU61 RC (10:06)
[2023-01-23] MEDS ORDERED: SIME80TA72 PO (10:06)
[2023-01-23] MEDS ORDERED: MUPI22OI7 TP (10:06)
[2023-01-23] MEDS ORDERED: NYST5ORA PO (10:06)
[2023-01-23] MEDS: LOSARTAN POTASSIUM 25 MG TABLET PO SCH (10:31)
[2023-01-23] MEDS: CARVEDILOL 12.5 MG TABLET PO SCH ×2 (10:31→16:27)
[2023-01-23 16:00] VITALS: BP 136/72
[2023-01-23] MEDS: MORPHINE SULFATE INJ 2 MG/ML DISP.SYRIN IV PRN (16:26)
--- NOTE | 2023-01-23 18:46 | NUR ---
CLOSING NOTE LEFT PATIENT RESTING IN BED. PT ALERT ORIENTED X4, ABLE TO VERBALIZE NEEDS. ON 2L OXYGEN VIA NASAL CANNULA. HAS AV SHUNT TO RIGHT ARM, AND LEFT UPPER ARM MIDLINE, LEFT FOREARM MIDLINE, LEFT PERM-CATH FOR HD,INTACT PATENT. PT REFUSES TO BE CLEANED THIS MORNING. SHE REFUSES FOR SKIN ASSESSMENT, AND PICTURES TO BE TAKEN. SHE ALSO REFUSES BLOOD TO BE DRAWN FOR LABS. SAFETY MEASURE IMPLEMENT BED IN LOW POSITION AND LOCKED, HEAD OF THE BED ELEVATED,CALL LIGHT WITHIN REACH.
[2023-01-23] MEDS: ATORVASTATIN 40 MG TABLET PO SCH (21:26)
[2023-01-23] MEDS: TRAZODONE 50 MG TABLET PO SCH (21:26)
[2023-01-23 23:16] VITALS: BP 138/68
[2023-01-24 00:14] VITALS: BP 139/83
[2023-01-24] MEDS: SEVELAMER CARBONATE 800 MG TABLET PO SCH ×3 (07:49→17:15)
[2023-01-24] MEDS: PANTOPRAZOLE 40 MG TABLET.DR PO SCH (07:49)
[2023-01-24] MEDS: PROSOURCE / PROSTAT (PYXIS) 30 ML UDC GT SCH ×3 (07:49→16:31)
[2023-01-24 08:00] VITALS: BP 119/70
[2023-01-24] MEDS: CALCITRIOL 0.25 MCG CAPSULE PO SCH (08:30)
[2023-01-24] MEDS: SERTRALINE HCL 50 MG TABLET PO SCH (08:30)
[2023-01-24] MEDS: CLOPIDOGREL BISULFATE 75 MG TABLET PO SCH (08:31)
[2023-01-24] MEDS: VIT B CMPLX 3/FA/VIT C/BIOTIN 1 TAB TABLET PO SCH (08:31)
[2023-01-24] MEDS: LOSARTAN POTASSIUM 25 MG TABLET PO SCH (08:31)
[2023-01-24] MEDS: ASCORBIC ACID 500 MG TABLET PO SCH (08:31)
[2023-01-24] MEDS: ACETAMINOPHEN ES 500 MG TABLET PO SCH (08:32)
[2023-01-24] MEDS: ASPIRIN 81 MG TAB.CHEW PO SCH (08:33)
[2023-01-24] MEDS: oxyCODONE IR immediate release 5 MG PO SCH (08:34)
[2023-01-24] MEDS: CARVEDILOL 12.5 MG TABLET PO SCH ×2 (08:35→16:31)
[2023-01-24] MEDS: Z GUARD REMEDY 4 OZ OINT TP SCH (08:35)
[2023-01-24] MEDS: MUPIROCIN OINT 2% 22 GM TUBE TP SCH (08:35)
[2023-01-24] MEDS: HEPARIN SODIUM, PORCINE 5000 UNITS/1 ML VIAL SQ SCH (08:42)
--- NOTE | 2023-01-24 08:42 | NUR ---
PATIENT REFUSED HEPARIN SHOT
[2023-01-24] MEDS ORDERED: EPOETIN ALFA-EPBX 10,000 UNIT/ML VIAL IV ONE (11:00)
--- NOTE | 2023-01-24 12:45 | NUR ---
DISCHARGED REPORT GIVEN TO OFELIA DAVIES AT [facility]. SHE ASKED TO DISCONTINUE IV LINES.
[2023-01-24 16:00] VITALS: BP 125/60
[2023-01-24 16:31] VITALS: BP 125/60
[2023-01-24] MEDS: MORPHINE SULFATE INJ 2 MG/ML DISP.SYRIN IV PRN (17:51)
--- NOTE | 2023-01-24 17:55 | NUR ---
MORPHINE SULFATE 1MG GIVEN DUE TO COMPLAINT OF PAIN 8/10 ON RIGHT FOOT.
--- NOTE | 2023-01-24 19:10 | NUR ---
discharge via paramedics to [facility].
== END 2023-01-24 19:10 | DRG 720 ==
LOC: ER 20:22 → TELE1 01-19 02:22 → MEDSG1 01-20 13:44
PROVIDERS: ADMIT Nurse Practitioner Acute Care; ATTEND Nurse Practitioner Acute Care
PROC: 05HC33Z Insertion of Infusion Device into Left Basilic Vein, Percutaneous Approach (ICD-10-PCS; 2023-01-19)
PROC: 5A1D70Z Performance of Urinary Filtration, Intermittent, Less than 6 Hours Per Day (ICD-10-PCS; principal; 2023-01-20)
PROC: 05HF33Z Insertion of Infusion Device into Left Cephalic Vein, Percutaneous Approach (ICD-10-PCS; 2023-01-20)
PROC: 30233N1 Transfusion of Nonautologous Red Blood Cells into Peripheral Vein, Percutaneous Approach (ICD-10-PCS; 2023-01-21)
DX: A41.9 Sepsis, unspecified organism (principal); J69.0 Pneumonitis due to inhalation of food and vomit; I50.33 Acute on chronic diastolic (congestive) heart failure; I21.A1 Myocardial infarction type 2; E44.0 Moderate protein-calorie malnutrition; D63.1 Anemia in chronic kidney disease; E87.1 Hypo-osmolality and hyponatremia; E88.09 Other disorders of plasma-protein metabolism, not elsewhere classified; L89.159 Pressure ulcer of sacral region, unspecified stage; L89.623 Pressure ulcer of left heel, stage 3; N18.6 End stage renal disease; I13.2 Hypertensive heart and chronic kidney disease with heart failure and with stage 5 chronic kidney disease, or end stage renal disease; Z66 Do not resuscitate; Z20.822 Contact with and (suspected) exposure to COVID-19; E78.5 Hyperlipidemia, unspecified; Z79.82 Long term (current) use of aspirin; Z99.2 Dependence on renal dialysis; G47.00 Insomnia, unspecified; F32.A Depression, unspecified; Z88.1 Allergy status to other antibiotic agents; Z79.02 Long term (current) use of antithrombotics/antiplatelets; Z79.899 Other long term (current) drug therapy; E66.01 Morbid (severe) obesity due to excess calories; Z68.44 Body mass index [BMI] 60.0-69.9, adult; K59.00 Constipation, unspecified; B37.0 Candidal stomatitis; L97.419 Non-pressure chronic ulcer of right heel and midfoot with unspecified severity; L97.429 Non-pressure chronic ulcer of left heel and midfoot with unspecified severity; Z87.81 Personal history of (healed) traumatic fracture; L89.326 Pressure-induced deep tissue damage of left buttock; L89.316 Pressure-induced deep tissue damage of right buttock; S81.802A Unspecified open wound, left lower leg, initial encounter; X58.XXXA Exposure to other specified factors, initial encounter; Y92.9 Unspecified place or not applicable; L89.619 Pressure ulcer of right heel, unspecified stage; D64.9 Anemia, unspecified
CPT/HCPCS: 36410; 36415; 71045-TC; 73610-TC; 80048-TC; 80053-TC; 80061-TC; 80076-TC; 80202-TC; 83735-TC; 84100-TC; 84443-TC; 84484-TC; 85025-TC; 85027-TC; 85610-TC; 85730-TC; 86706; 86803; 86850-TC; 87040-TC; 87081-TC; 87340; 87806; 90935-TC; 92526; 92611-TC; 93307-TC; A4223; A6403; C9803; G0378; J0692; J0885; J1642; J1644; J2270; J2405; J2997; J3370; J7030; J7040; J7050; J7060; P9016

== ENCOUNTER 2023-11-03 03:44 | Inpatient (IN) | payer OTHER ==
[~2023-11-03] VITALS: Ht 172.7 cm; Wt 151.0 kg
[~2023-11-03 03:44] MED LIST: ACET-2605 PO; ACET-868 PO; AMIN30LI2 PO; ASCO500T10 PO; ASPI-1169 PO; ATOR80TA PO; BISA10SU61 RC; CALC0.253 PO; CARV12.52 PO; CLOP75TA15 PO; DIPH50CA4 PO; DOCU100C36 PO; FOLI0.8T23 PO; HEPA50008 SQ; HYDR-500 PO; LORA-259 PO; LOSA25TA27 PO; MUPI22OI7 TP; NYST5ORA PO; OMEP40CA21 PO; ONDA-97 PO; OXYC15TA2 PO; SERT50TA PO; SEVE800T8 PO; SIME80TA15 PO; SIME80TA72 PO; TRAZ-257 PO; ZINC1CAP3 PO
[2023-11-03 05:19] LABS: BASOPHILS # (AUTO) 0.1 K/uL (0.0-0.2); BASOPHILS % (AUTO) 0.9 % (0.0-2.0); EOSINOPHILS # (AUTO) 0.2 K/uL (0.0-0.7); EOSINOPHILS % (AUTO) 2.2 % (0.0-6.0); HEMATOCRIT 28 % (33-45); HEMOGLOBIN 8.6 g/dL (11.5-14.8); LYMPHOCYTES % (AUTO) 12.4 % (20.0-44.0); MEAN CORPUSCULAR HEMOGLOBIN 29 PG (26.0-33.0); MEAN CORPUSCULAR HGB CONC 31 g/dl (31.0-36.0); MEAN CORPUSCULAR VOLUME 93 fL (82-100); MONOCYTES # (AUTO) 0.5 K/uL (0.1-1.30); MONOCYTES % (AUTO) 6.6 % (2.0-12.0); NEUTROPHILS # (AUTO) 6.3 K/uL (1.8-8.9); NEUTROPHILS % (AUTO) 77.9 % (43.0-81.0); PLATELET COUNT (AUTO) 260 K/uL (150-450); RED BLOOD CELL COUNT(AUTO) 2.98 MIL/uL (4.0-5.2); RED CELL DISTRIBUTION WIDTH 17.8 % (11.5-15.0); WHITE BLOOD COUNT (AUTO) 8.1 K/uL (4.3-11.0)
[2023-11-03] MEDS ORDERED: IV NS 0.9% 500 ML BAG IV ONE (05:30)
[2023-11-03 05:37] LABS: CALCIUM, SERUM 9.1 mg/dL (8.5-10.1); CARBON DIOXIDE 25 mmol/L (21-32); CHLORIDE 100 mmol/L (98-107); CREATININE 5.5 mg/dL (0.6-1.3); GLUCOSE 140 mg/dL (74-106); MAGNESIUM 1.8 mg/dL (1.8-2.4); PHOSPHORUS 3.8 mg/dL (2.5-4.9); POTASSIUM 4.7 mmol/L (3.5-5.1); SODIUM SERUM 135 mmol/L (136-145); UREA NITROGEN, BLOOD 35 mg/dL (7-18)
[2023-11-03 05:43] LABS: LACTIC ACID 1.4 mmol/L (0.4-2.0)
[2023-11-03 05:50] LABS: ALANINE AMINOTRANSFERASE 14 U/L (12-78); ALBUMIN 1.5 g/dL (3.4-5.0); ALKALINE PHOSPHATASE 118 U/L (46-116); ASPARTATE AMINOTRANSFERASE 22 U/L (15-37); BILIRUBIN,DIRECT 0.2 mg/dL (0.0-0.2); BILIRUBIN,TOTAL 0.4 mg/dL (0.2-1.0); TOTAL PROTEIN, SERUM 7.7 g/dL (6.4-8.2)
[2023-11-03] MEDS ORDERED: FENTANYL PF 100MCG/2ML AMPUL IV ONE (07:00)
[2023-11-03] MEDS ORDERED: IV NS 0.9% 250 ML BAG IV ONE (07:00)
[2023-11-03] MEDS ORDERED: FENTANYL PF 100MCG/2ML AMPUL ONE (07:08)
[2023-11-03] MEDS ORDERED: LIDO30CR47 TP (08:30)
[2023-11-03] MEDS ORDERED: HYDR4TAB4 PO (08:30)
[2023-11-03] MEDS ORDERED: POLY15DR40 EACHEYE (08:30)
[2023-11-03] MEDS ORDERED: DICL100G34 TP (08:30)
[2023-11-03] MEDS ORDERED: METH5TAB2 PO (08:30)
[2023-11-03] MEDS ORDERED: HEPA50007 SQ (08:30)
[2023-11-03] MEDS ORDERED: IBUP-1955 PO (08:30)
[2023-11-03] MEDS ORDERED: LURA40TA PO (08:30)
[2023-11-03] MEDS ORDERED: INSU100V11 SQ (08:30)
[2023-11-03] MEDS ORDERED: HYDR28.32 TP (08:30)
[2023-11-03] MEDS ORDERED: DEXT15LI44 PO (08:30)
[2023-11-03] MEDS ORDERED: TRIA15OI2 TP (08:30)
[2023-11-03] MEDS ORDERED: POLY17PO4 PO (08:30)
[2023-11-03] MEDS ORDERED: FAMO20TA8 PO (08:30)
[2023-11-03] MEDS ORDERED: CYCL5TAB PO (08:30)
[2023-11-03] MEDS ORDERED: MELA3TAB41 PO (08:30)
[2023-11-03] MEDS ORDERED: GLUC1KIT IM (08:30)
[2023-11-03] MEDS ORDERED: LISI20TA30 PO (08:30)
[2023-11-03] MEDS ORDERED: POTA-88 PO (08:30)
[2023-11-03] MEDS ORDERED: HYDR-4075 PO (08:30)
[2023-11-03 11:00] VITALS: BP 109/79; TEMP 98.5; O2SAT 100
[2023-11-03 16:00] VITALS: BP 113/51; TEMP 98.3; O2SAT 100
[2023-11-03] MEDS ORDERED: MAGNESIUM HYDROXIDE 30 ML UDC PO PRN (17:30)
[2023-11-03] MEDS ORDERED: MAG HYDROX/AL HYDROX/SIMETH 30 ML UDC PO PRN (17:30)
[2023-11-03] MEDS ORDERED: ZOLPIDEM TARTRATE 5 MG TABLET PO PRN (17:30)
[2023-11-03] MEDS ORDERED: Z GUARD REMEDY 4 OZ OINT TP PRN (17:30)
[2023-11-03] MEDS ORDERED: CYCLOBENZAPRINE 10 MG TABLET PO PRN (17:30)
[2023-11-03] MEDS ORDERED: TRAZODONE 50 MG TABLET PO PRN (17:30)
[2023-11-03] MEDS ORDERED: IV NS 0.9% 500 ML IV ONE (17:30)
[2023-11-03] MEDS ORDERED: ONDANSETRON HCL/PF 4 MG/2 ML VIAL IVP PRN (17:30)
[2023-11-03] MEDS ORDERED: hydrALAZINE HCL 10 MG TABLET PO PRN (17:30)
[2023-11-03] MEDS ORDERED: LORAZEPAM 1 MG TABLET PO PRN (17:30)
[2023-11-03] MEDS: HYDROMORPHONE 1 MG/1 ML DISP.SYRIN IV PRN (18:10)
[2023-11-03 20:00] VITALS: BP 99/65; TEMP 97.8; O2SAT 98
[2023-11-03] MEDS: ATORVASTATIN 40 MG TABLET PO SCH (22:36)
[2023-11-03] MEDS: HEPARIN SODIUM, PORCINE 5000 UNITS/1 ML VIAL SQ SCH (22:38)
[2023-11-03] MEDS: ACETAMINOPHEN 325 MG TABLET PO PRN (23:10)
[2023-11-04] VITALS: BP 83/64; TEMP 98.1; O2SAT 98
[2023-11-04] MEDS ORDERED: IV NS 0.9% 500 ML IV ONE (01:30)
[2023-11-04] MEDS ORDERED: CEFTRIAXONE 1 G VIAL IM SCH (02:00)
[2023-11-04] MEDS ORDERED: CEFTRIAXONE 1 G VIAL IV SCH (02:00)
[2023-11-04] MEDS ORDERED: CEFTRIAXONE 1GM BAG (ER ONLY) 50 ML IV ONE (03:20)
[2023-11-04 04:00] VITALS: BP 89/56; TEMP 97.8; O2SAT 98
[2023-11-04 08:00] VITALS: BP 103/87; TEMP 98.6; O2SAT 99
[2023-11-04] MEDS: POLYETHYLENE GLYCOL 3350 17 GM POWD.PACK PO SCH (09:00)
[2023-11-04] MEDS: HEPARIN SODIUM, PORCINE 5000 UNITS/1 ML VIAL SQ SCH ×2 (09:00→21:00)
[2023-11-04] MEDS: LISINOPRIL (20MG) 20 MG TABLET PO SCH (09:00)
[2023-11-04] MEDS: HYDROMORPHONE 1 MG/1 ML DISP.SYRIN IV PRN ×2 (10:00→18:36)
[2023-11-04] MEDS: TRIAMCINOLONE OINT 0.1% 15 GM TUBE TP SCH ×2 (10:03→17:10)
[2023-11-04] MEDS: SERTRALINE HCL 50 MG TABLET PO SCH (10:04)
[2023-11-04] MEDS: CALCITRIOL 0.25 MCG CAPSULE PO SCH (10:04)
[2023-11-04] MEDS ORDERED: METHADONE HCL 10 MG TABLET PO SCH (11:30)
[2023-11-04] MEDS: THERAHONEY GEL 1.5 OZ TUBE TP SCH (12:14)
[2023-11-04 12:19] VITALS: BP 117/45; TEMP 98.4; O2SAT 100
[2023-11-04 16:29] VITALS: BP 122/47; TEMP 97.3; O2SAT 100
[2023-11-04] MEDS: METHADONE HCL 10 MG TABLET PO SCH (17:10)
[2023-11-04 20:00] VITALS: BP 90/50; TEMP 210.4; TEMP 99.1; O2SAT 97
[2023-11-04] MEDS: MUPIROCIN OINT 2% 22 GM TUBE NS SCH (20:50)
[2023-11-04] MEDS: ATORVASTATIN 40 MG TABLET PO SCH (22:00)
[2023-11-05] MEDS: CEFTRIAXONE 1 G in IV D5W 50 ML IV SCH (02:18)
[2023-11-05 04:00] VITALS: BP 114/75; TEMP 98.2; O2SAT 99
[2023-11-05] MEDS: HYDROMORPHONE 1 MG/1 ML DISP.SYRIN IV PRN (05:09)
[2023-11-05 07:05] LABS: BASOPHILS % (AUTO) 0.7 % (0.0-2.0); EOSINOPHILS # (AUTO) 0.1 K/uL (0.0-0.7); EOSINOPHILS % (AUTO) 3.5 % (0.0-6.0); HEMATOCRIT 28 % (33-45); HEMOGLOBIN 8.5 g/dL (11.5-14.8); LYMPHOCYTES # (AUTO) 0.6 K/uL (0.8-4.8); LYMPHOCYTES % (AUTO) 16.1 % (20.0-44.0); MEAN CORPUSCULAR HEMOGLOBIN 29 PG (26.0-33.0); MEAN CORPUSCULAR HGB CONC 31 g/dl (31.0-36.0); MEAN CORPUSCULAR VOLUME 92 fL (82-100); NEUTROPHILS % (AUTO) 78.7 % (43.0-81.0); PLATELET COUNT (AUTO) 257 K/uL (150-450); RED BLOOD CELL COUNT(AUTO) 2.99 MIL/uL (4.0-5.2); RED CELL DISTRIBUTION WIDTH 18.3 % (11.5-15.0); WHITE BLOOD COUNT (AUTO) 3.8 K/uL (4.3-11.0)
[2023-11-05 07:20] LABS: CALCIUM, SERUM 9.5 mg/dL (8.5-10.1); CREATININE 6.1 mg/dL (0.6-1.3); POTASSIUM 4.9 mmol/L (3.5-5.1)
[2023-11-05 07:30] VITALS: BP 94/43; TEMP 98.2; O2SAT 98
[2023-11-05] MEDS: POLYETHYLENE GLYCOL 3350 17 GM POWD.PACK PO SCH (09:00)
[2023-11-05] MEDS: THERAHONEY GEL 1.5 OZ TUBE TP SCH (09:00)
[2023-11-05] MEDS: LISINOPRIL (20MG) 20 MG TABLET PO SCH (09:00)
[2023-11-05] MEDS: METHADONE HCL 10 MG TABLET PO SCH ×3 (09:24→16:06)
[2023-11-05] MEDS: SERTRALINE HCL 50 MG TABLET PO SCH (09:24)
[2023-11-05] MEDS: CALCITRIOL 0.25 MCG CAPSULE PO SCH (09:26)
[2023-11-05] MEDS: TRIAMCINOLONE OINT 0.1% 15 GM TUBE TP SCH ×2 (09:26→16:07)
[2023-11-05] MEDS: MUPIROCIN OINT 2% 22 GM TUBE NS SCH ×2 (09:26→22:00)
[2023-11-05] MEDS: HEPARIN SODIUM, PORCINE 5000 UNITS/1 ML VIAL SQ SCH ×2 (09:26→22:03)
[2023-11-05] MEDS: MIDODRINE HCL (5MG) 5 MG TABLET PO SCH ×2 (12:36→16:06)
[2023-11-05] MEDS: ACETAMINOPHEN 325 MG TABLET PO PRN (13:03)
[2023-11-05 16:00] VITALS: BP 76/34; TEMP 100.8; O2SAT 94
[2023-11-05] MEDS: ALBUMIN 25% 25 GM in PREMIX 1 EA IV PRN (16:15)
[2023-11-05] MEDS: IV D5/ 0.9% NACL 1,000 ML IV PRN (18:13)
[2023-11-05 20:00] VITALS: BP 84/37; TEMP 97.9; O2SAT 94
[2023-11-05] MEDS: ATORVASTATIN 40 MG TABLET PO SCH (21:59)
[2023-11-05] MEDS ORDERED: IV NS 0.9% 500 ML BAG IV ONE (22:30)
[2023-11-06] VITALS: BP 93/46; TEMP 98; O2SAT 97
[2023-11-06] MEDS: ACETAMINOPHEN 325 MG TABLET PO PRN ×2 (02:57→21:26)
[2023-11-06] MEDS: CEFTRIAXONE 1 G in IV D5W 50 ML IV SCH (03:17)
[2023-11-06 04:00] VITALS: BP 133/91; TEMP 98.1; O2SAT 97
[2023-11-06 07:00] VITALS: BP 105/43; TEMP 98; O2SAT 99
[2023-11-06] MEDS: HYDROMORPHONE 1 MG/1 ML DISP.SYRIN IV PRN (07:00)
[2023-11-06 08:25] LABS: CREATININE 5.8 mg/dL (0.6-1.3); PHOSPHORUS 2.9 mg/dL (2.5-4.9); POTASSIUM 4.5 mmol/L (3.5-5.1)
[2023-11-06] MEDS: SERTRALINE HCL 50 MG TABLET PO SCH (08:47)
[2023-11-06] MEDS: CALCITRIOL 0.25 MCG CAPSULE PO SCH (08:47)
[2023-11-06] MEDS: MIDODRINE HCL (5MG) 5 MG TABLET PO SCH ×3 (08:48→16:18)
[2023-11-06] MEDS: MUPIROCIN OINT 2% 22 GM TUBE NS SCH ×2 (08:49→20:49)
[2023-11-06] MEDS: THERAHONEY GEL 1.5 OZ TUBE TP SCH (08:51)
[2023-11-06] MEDS: TRIAMCINOLONE OINT 0.1% 15 GM TUBE TP SCH ×2 (08:51→16:18)
[2023-11-06] MEDS: HEPARIN SODIUM, PORCINE 5000 UNITS/1 ML VIAL SQ SCH ×2 (08:57→20:48)
[2023-11-06] MEDS: LISINOPRIL (20MG) 20 MG TABLET PO SCH (08:57)
[2023-11-06] MEDS: POLYETHYLENE GLYCOL 3350 17 GM POWD.PACK PO SCH (08:57)
[2023-11-06] MEDS: METHADONE HCL 10 MG TABLET PO SCH ×3 (09:00→17:00)
[2023-11-06 11:10] LABS: BASOPHILS # (AUTO) 0.1 K/uL (0.0-0.2); BASOPHILS % (AUTO) 0.6 % (0.0-2.0); EOSINOPHILS # (AUTO) 0.2 K/uL (0.0-0.7); EOSINOPHILS % (AUTO) 1.7 % (0.0-6.0); HEMATOCRIT 23 % (33-45); HEMOGLOBIN 7.2 g/dL (11.5-14.8); LYMPHOCYTES # (AUTO) 1.2 K/uL (0.8-4.8); LYMPHOCYTES % (AUTO) 9.7 % (20.0-44.0); MEAN CORPUSCULAR HEMOGLOBIN 28 PG (26.0-33.0); MEAN CORPUSCULAR HGB CONC 31 g/dl (31.0-36.0); MEAN CORPUSCULAR VOLUME 91 fL (82-100); MONOCYTES # (AUTO) 0.8 K/uL (0.1-1.30); MONOCYTES % (AUTO) 6.4 % (2.0-12.0); NEUTROPHILS # (AUTO) 10.4 K/uL (1.8-8.9); NEUTROPHILS % (AUTO) 81.6 % (43.0-81.0); PLATELET COUNT (AUTO) 171 K/uL (150-450); RED BLOOD CELL COUNT(AUTO) 2.53 MIL/uL (4.0-5.2); WHITE BLOOD COUNT (AUTO) 12.7 K/uL (4.3-11.0)
[2023-11-06 12:07] VITALS: BP 95/47; TEMP 97.9; O2SAT 96
[2023-11-06] MEDS: PROSOURCE / PROSTAT (PYXIS) 30 ML UDC PO SCH ×2 (12:32→16:18)
[2023-11-06 16:00] VITALS: BP 104/48; TEMP 97.9; O2SAT 96
[2023-11-06] MEDS: IV D5/ 0.9% NACL 1,000 ML IV PRN (16:18)
[2023-11-06 20:00] VITALS: BP 116/48; TEMP 97.5; O2SAT 99
[2023-11-06] MEDS: ATORVASTATIN 40 MG TABLET PO SCH (21:26)
[2023-11-07] VITALS: BP 109/48; TEMP 97.9; O2SAT 97
[2023-11-07] MEDS: CEFTRIAXONE 1 G in IV D5W 50 ML IV SCH (02:03)
[2023-11-07 04:00] VITALS: BP 104/65; TEMP 98.1; O2SAT 100
[2023-11-07 08:00] VITALS: BP 108/40; TEMP 97.9; O2SAT 98
[2023-11-07] MEDS: HEPARIN SODIUM, PORCINE 5000 UNITS/1 ML VIAL SQ SCH ×2 (09:00→20:24)
[2023-11-07] MEDS: LISINOPRIL (20MG) 20 MG TABLET PO SCH (09:00)
[2023-11-07] MEDS: POLYETHYLENE GLYCOL 3350 17 GM POWD.PACK PO SCH ×2 (09:00→09:36)
[2023-11-07] MEDS: PROSOURCE / PROSTAT (PYXIS) 30 ML UDC PO SCH ×4 (09:00→17:00)
[2023-11-07] MEDS: CALCITRIOL 0.25 MCG CAPSULE PO SCH (09:36)
[2023-11-07] MEDS: SERTRALINE HCL 50 MG TABLET PO SCH (09:36)
[2023-11-07] MEDS: MIDODRINE HCL (5MG) 5 MG TABLET PO SCH ×3 (09:37→17:00)
[2023-11-07] MEDS: METHADONE HCL 10 MG TABLET PO SCH ×4 (09:38→17:18)
[2023-11-07] MEDS: THERAHONEY GEL 1.5 OZ TUBE TP SCH (09:54)
[2023-11-07] MEDS: TRIAMCINOLONE OINT 0.1% 15 GM TUBE TP SCH ×2 (09:54→17:00)
[2023-11-07] MEDS: MUPIROCIN OINT 2% 22 GM TUBE NS SCH ×2 (09:55→20:27)
[2023-11-07 12:00] VITALS: BP 107/36; TEMP 98.2; O2SAT 96
[2023-11-07] MEDS ORDERED: ALTEPLASE CATHFLO 2 MG/VIAL XX ONE ×3 (17:00→17:30)
[2023-11-07] MEDS: IV D5/ 0.9% NACL 1,000 ML IV PRN (17:27)
[2023-11-07] MEDS: HYDROMORPHONE 1 MG/1 ML DISP.SYRIN IV PRN (17:44)
[2023-11-07 18:19] LABS: BASOPHILS # (AUTO) 0.1 K/uL (0.0-0.2); BASOPHILS % (AUTO) 0.9 % (0.0-2.0); EOSINOPHILS # (AUTO) 0.3 K/uL (0.0-0.7); HEMATOCRIT 24 % (33-45); HEMOGLOBIN 7.2 g/dL (11.5-14.8); LYMPHOCYTES # (AUTO) 1.5 K/uL (0.8-4.8); LYMPHOCYTES % (AUTO) 11.2 % (20.0-44.0); MEAN CORPUSCULAR HEMOGLOBIN 28 PG (26.0-33.0); MEAN CORPUSCULAR HGB CONC 30 g/dl (31.0-36.0); MEAN CORPUSCULAR VOLUME 93 fL (82-100); MONOCYTES # (AUTO) 0.9 K/uL (0.1-1.30); MONOCYTES % (AUTO) 6.8 % (2.0-12.0); NEUTROPHILS # (AUTO) 10.5 K/uL (1.8-8.9); NEUTROPHILS % (AUTO) 79.1 % (43.0-81.0); PLATELET COUNT (AUTO) 182 K/uL (150-450); RED BLOOD CELL COUNT(AUTO) 2.59 MIL/uL (4.0-5.2); RED CELL DISTRIBUTION WIDTH 19.2 % (11.5-15.0); WHITE BLOOD COUNT (AUTO) 13.3 K/uL (4.3-11.0)
[2023-11-07 18:39] LABS: CREATININE 5.9 mg/dL (0.6-1.3); MAGNESIUM 1.8 mg/dL (1.8-2.4); PHOSPHORUS 3.1 mg/dL (2.5-4.9); POTASSIUM 5.1 mmol/L (3.5-5.1)
[2023-11-07 20:00] VITALS: BP 137/84; TEMP 97.7; O2SAT 100
[2023-11-07] MEDS: ATORVASTATIN 40 MG TABLET PO SCH (21:00)
[2023-11-07 22:23] LABS: EOSINOPHILS % (MANUAL) 3 % (0-4); LYMPHOCYTES % (MANUAL) 11 % (16-48); MONOCYTES % (MANUAL) 7 % (0-11.0); NEUTROPHILS % (MANUAL) 79 (42-76)
[2023-11-07 22:24] LABS: ANISOCYTOSIS 1+; PLATELET ESTIMATE ADEQUATE
[2023-11-08] VITALS: BP 110/52; TEMP 97.8; O2SAT 100
[2023-11-08] MEDS: ACETAMINOPHEN 325 MG TABLET PO PRN (00:21)
[2023-11-08] MEDS: IV D5/ 0.9% NACL 1,000 ML IV PRN (02:01)
[2023-11-08] MEDS: CEFTRIAXONE 1 G in IV D5W 50 ML IV SCH (02:01)
[2023-11-08 07:30] VITALS: BP 106/55; TEMP 97.1; O2SAT 100
[2023-11-08] MEDS: MIDODRINE HCL (5MG) 5 MG TABLET PO SCH ×3 (08:28→16:13)
[2023-11-08] MEDS: CALCITRIOL 0.25 MCG CAPSULE PO SCH (08:28)
[2023-11-08] MEDS: METHADONE HCL 10 MG TABLET PO SCH ×3 (08:29→16:12)
[2023-11-08] MEDS: LISINOPRIL (20MG) 20 MG TABLET PO SCH (08:29)
[2023-11-08] MEDS: POLYETHYLENE GLYCOL 3350 17 GM POWD.PACK PO SCH (08:29)
[2023-11-08] MEDS: SERTRALINE HCL 50 MG TABLET PO SCH (08:30)
[2023-11-08] MEDS: THERAHONEY GEL 1.5 OZ TUBE TP SCH (08:32)
[2023-11-08] MEDS: PROSOURCE / PROSTAT (PYXIS) 30 ML UDC PO SCH ×3 (08:32→16:13)
[2023-11-08] MEDS: TRIAMCINOLONE OINT 0.1% 15 GM TUBE TP SCH ×2 (08:33→16:12)
[2023-11-08] MEDS: HEPARIN SODIUM, PORCINE 5000 UNITS/1 ML VIAL SQ SCH ×2 (09:00→21:00)
[2023-11-08] MEDS: MUPIROCIN OINT 2% 22 GM TUBE NS SCH ×2 (11:27→21:37)
[2023-11-08 12:00] VITALS: BP 74/32; TEMP 98.6; O2SAT 96
[2023-11-08] MEDS: HYDROCODONE/APAP 10/325MG TABLET PO PRN (14:08)
[2023-11-08 16:00] VITALS: BP 103/49; TEMP 98.9; O2SAT 98
[2023-11-08] MEDS: ALBUMIN 25% 25 GM in PREMIX 1 EA IV PRN (18:18)
[2023-11-08 20:50] VITALS: BP 102/61; TEMP 97.9; O2SAT 98
[2023-11-08] MEDS: ATORVASTATIN 40 MG TABLET PO SCH (22:28)
[2023-11-09 00:21] VITALS: BP 115/40; TEMP 97.7; O2SAT 100
[2023-11-09] MEDS: CEFTRIAXONE 1 G in IV D5W 50 ML IV SCH (03:14)
[2023-11-09 04:40] VITALS: BP 110/54; TEMP 98.6; O2SAT 98
[2023-11-09] MEDS: HYDROCODONE/APAP 10/325MG TABLET PO PRN (05:00)
[2023-11-09 07:30] VITALS: BP 113/63; TEMP 97.7; O2SAT 100
[2023-11-09 07:50] LABS: CREATININE 5.2 mg/dL (0.6-1.3); PHOSPHORUS 2.9 mg/dL (2.5-4.9); POTASSIUM 4.1 mmol/L (3.5-5.1)
[2023-11-09] MEDS: TRIAMCINOLONE OINT 0.1% 15 GM TUBE TP SCH ×2 (09:00→16:52)
[2023-11-09] MEDS: LISINOPRIL (20MG) 20 MG TABLET PO SCH (09:00)
[2023-11-09] MEDS: THERAHONEY GEL 1.5 OZ TUBE TP SCH (09:00)
[2023-11-09] MEDS: POLYETHYLENE GLYCOL 3350 17 GM POWD.PACK PO SCH (09:00)
[2023-11-09] MEDS ORDERED: CEFT1VIA15 IV (09:16)
[2023-11-09] MEDS ORDERED: MIDO5TAB4 PO (09:16)
[2023-11-09] MEDS: SERTRALINE HCL 50 MG TABLET PO SCH (09:46)
[2023-11-09] MEDS: CALCITRIOL 0.25 MCG CAPSULE PO SCH (09:46)
[2023-11-09] MEDS: PROSOURCE / PROSTAT (PYXIS) 30 ML UDC PO SCH ×3 (09:47→16:52)
[2023-11-09] MEDS: HYDROCORTISONE 1% CREAM 28.35 GM TUBE TP PRN (09:47)
[2023-11-09] MEDS: MIDODRINE HCL (5MG) 5 MG TABLET PO SCH ×3 (09:47→16:57)
[2023-11-09] MEDS: METHADONE HCL 10 MG TABLET PO SCH ×3 (09:49→16:56)
[2023-11-09] MEDS: MUPIROCIN OINT 2% 22 GM TUBE NS SCH ×2 (09:51→20:27)
[2023-11-09] MEDS: HEPARIN SODIUM, PORCINE 5000 UNITS/1 ML VIAL SQ SCH ×2 (10:14→20:29)
[2023-11-09 15:19] LABS: BASOPHILS % (AUTO) 0.2 % (0.0-2.0); EOSINOPHILS # (AUTO) 0.2 K/uL (0.0-0.7); EOSINOPHILS % (AUTO) 1.1 % (0.0-6.0); HEMATOCRIT 23 % (33-45); LYMPHOCYTES # (AUTO) 1.9 K/uL (0.8-4.8); LYMPHOCYTES % (AUTO) 12.6 % (20.0-44.0); MEAN CORPUSCULAR HEMOGLOBIN 28 PG (26.0-33.0); MEAN CORPUSCULAR HGB CONC 30 g/dl (31.0-36.0); MEAN CORPUSCULAR VOLUME 94 fL (82-100); MONOCYTES # (AUTO) 0.8 K/uL (0.1-1.30); MONOCYTES % (AUTO) 5.3 % (2.0-12.0); NEUTROPHILS # (AUTO) 12.1 K/uL (1.8-8.9); NEUTROPHILS % (AUTO) 80.8 % (43.0-81.0); PLATELET COUNT (AUTO) 145 K/uL (150-450); RED BLOOD CELL COUNT(AUTO) 2.46 MIL/uL (4.0-5.2); RED CELL DISTRIBUTION WIDTH 19.4 % (11.5-15.0); WHITE BLOOD COUNT (AUTO) 14.9 K/uL (4.3-11.0)
[2023-11-09 16:00] VITALS: BP 102/46; TEMP 98.2; O2SAT 95
[2023-11-09 18:48] LABS: ANISOCYTOSIS 1+; BAND % (MANUAL) 2 % (0.0-5.0); EOSINOPHILS % (MANUAL) 1 % (0-4); LYMPHOCYTES % (MANUAL) 19 % (16-48); MONOCYTES % (MANUAL) 1 % (0-11.0); NEUTROPHILS % (MANUAL) 77 (42-76); OVALOCYTES RARE; PLATELET ESTIMATE DECREASED
[2023-11-09 20:00] VITALS: BP 122/62; TEMP 97.5; O2SAT 97
[2023-11-09] MEDS: IV D5/ 0.9% NACL 1,000 ML IV PRN (20:52)
[2023-11-09] MEDS: ATORVASTATIN 40 MG TABLET PO SCH (21:33)
[2023-11-10] MEDS: CEFTRIAXONE 1 G in IV D5W 50 ML IV SCH (02:51)
[2023-11-10 07:30] VITALS: BP 125/74; TEMP 98.4; O2SAT 98
[2023-11-10] MEDS: HYDROMORPHONE 1 MG/1 ML DISP.SYRIN IV PRN (07:56)
[2023-11-10] MEDS: MUPIROCIN OINT 2% 22 GM TUBE NS SCH ×2 (09:00→20:31)
[2023-11-10] MEDS: MIDODRINE HCL (5MG) 5 MG TABLET PO SCH ×3 (09:37→17:03)
[2023-11-10] MEDS: LISINOPRIL (20MG) 20 MG TABLET PO SCH (09:37)
[2023-11-10] MEDS: HEPARIN SODIUM, PORCINE 5000 UNITS/1 ML VIAL SQ SCH (09:39)
[2023-11-10] MEDS: CALCITRIOL 0.25 MCG CAPSULE PO SCH (09:40)
[2023-11-10] MEDS: SERTRALINE HCL 50 MG TABLET PO SCH (09:40)
[2023-11-10] MEDS: POLYETHYLENE GLYCOL 3350 17 GM POWD.PACK PO SCH (09:40)
[2023-11-10] MEDS: METHADONE HCL 10 MG TABLET PO SCH ×3 (09:41→17:04)
[2023-11-10] MEDS: TRIAMCINOLONE OINT 0.1% 15 GM TUBE TP SCH ×2 (09:41→17:04)
[2023-11-10] MEDS: HYDROCORTISONE 1% CREAM 28.35 GM TUBE TP PRN (09:41)
[2023-11-10] MEDS: THERAHONEY GEL 1.5 OZ TUBE TP SCH (09:43)
[2023-11-10] MEDS: PROSOURCE / PROSTAT (PYXIS) 30 ML UDC PO SCH ×3 (09:57→17:02)
[2023-11-10] MEDS ORDERED: NEPRO VAN 237 ML CAN PO PRN (14:30)
[2023-11-10 16:00] VITALS: BP 116/69; TEMP 98.4
[2023-11-10 20:12] VITALS: BP 120/65; TEMP 98.4; O2SAT 99
[2023-11-10] MEDS: ATORVASTATIN 40 MG TABLET PO SCH (21:36)
[2023-11-10] MEDS: HYDROMORPHONE HCL 2 MG TABLET PO PRN (23:00)
[2023-11-11] MEDS: CEFTRIAXONE 1 G in IV D5W 50 ML IV SCH (02:46)
[2023-11-11] MEDS: HYDROCODONE/APAP 10/325MG TABLET PO PRN ×2 (05:05→22:15)
[2023-11-11] MEDS: SERTRALINE HCL 50 MG TABLET PO SCH (08:36)
[2023-11-11] MEDS: MIDODRINE HCL (5MG) 5 MG TABLET PO SCH ×3 (08:36→16:31)
[2023-11-11] MEDS: METHADONE HCL 10 MG TABLET PO SCH ×3 (08:36→16:31)
[2023-11-11] MEDS: CALCITRIOL 0.25 MCG CAPSULE PO SCH (08:36)
[2023-11-11] MEDS: POLYETHYLENE GLYCOL 3350 17 GM POWD.PACK PO SCH (08:36)
[2023-11-11] MEDS: LISINOPRIL (20MG) 20 MG TABLET PO SCH (08:37)
[2023-11-11] MEDS: PROSOURCE / PROSTAT (PYXIS) 30 ML UDC PO SCH ×3 (08:39→16:31)
[2023-11-11] MEDS: THERAHONEY GEL 1.5 OZ TUBE TP SCH (08:41)
[2023-11-11] MEDS: TRIAMCINOLONE OINT 0.1% 15 GM TUBE TP SCH ×2 (08:41→16:31)
[2023-11-11] MEDS: MUPIROCIN OINT 2% 22 GM TUBE NS SCH (08:41)
[2023-11-11 09:07] VITALS: BP 118/56; TEMP 97.6; O2SAT 95
[2023-11-11] MEDS: HYDROMORPHONE HCL 2 MG TABLET PO PRN (15:02)
[2023-11-11 17:59] LABS: BASOPHILS # (AUTO) 0.1 K/uL (0.0-0.2); EOSINOPHILS # (AUTO) 0.1 K/uL (0.0-0.7); EOSINOPHILS % (AUTO) 0.9 % (0.0-6.0); MEAN CORPUSCULAR HGB CONC 31 g/dl (31.0-36.0)
[2023-11-11] MEDS ORDERED: ALTEPLASE CATHFLO 2 MG/VIAL XX ONE (18:00)
[2023-11-11 18:03] LABS: BASOPHILS % (AUTO) 0.4 % (0.0-2.0); HEMATOCRIT 21 % (33-45); LYMPHOCYTES # (AUTO) 1.5 K/uL (0.8-4.8); LYMPHOCYTES % (AUTO) 11.1 % (20.0-44.0); MEAN CORPUSCULAR HEMOGLOBIN 28 PG (26.0-33.0); MEAN CORPUSCULAR VOLUME 91 fL (82-100); MONOCYTES # (AUTO) 0.7 K/uL (0.1-1.30); NEUTROPHILS # (AUTO) 11.2 K/uL (1.8-8.9); NEUTROPHILS % (AUTO) 82.6 % (43.0-81.0); PLATELET COUNT (AUTO) 153 K/uL (150-450); RED BLOOD CELL COUNT(AUTO) 2.35 MIL/uL (4.0-5.2); RED CELL DISTRIBUTION WIDTH 18.5 % (11.5-15.0); WHITE BLOOD COUNT (AUTO) 13.6 K/uL (4.3-11.0)
[2023-11-11 18:05] LABS: HEMOGLOBIN 6.6 g/dL (11.5-14.8)
[2023-11-11 18:28] LABS: CALCIUM, SERUM 8.8 mg/dL (8.5-10.1); CREATININE 5.9 mg/dL (0.6-1.3); POTASSIUM 4.1 mmol/L (3.5-5.1)
[2023-11-11 18:37] VITALS: BP 102/34; TEMP 97.9; O2SAT 97
[2023-11-11 19:00] VITALS: BP 110/54; TEMP 98.1; O2SAT 94
[2023-11-11] MEDS: HYDROMORPHONE 1 MG/1 ML DISP.SYRIN IV PRN (19:19)
[2023-11-11 19:46] LABS: ANISOCYTOSIS 1+; BAND % (MANUAL) 2 % (0.0-5.0); EOSINOPHILS % (MANUAL) 1 % (0-4); LYMPHOCYTES % (MANUAL) 9 % (16-48); MONOCYTES % (MANUAL) 6 % (0-11.0); MYELOCYTES % 1 % (0-0); NEUTROPHILS % (MANUAL) 81 (42-76); OVALOCYTES 1+; PLATELET ESTIMATE ADEQUATE
[2023-11-11] MEDS: ATORVASTATIN 40 MG TABLET PO SCH (22:14)
[2023-11-11] MEDS: diphenhydrAMINE HCL 50 MG/ML VIAL IV PRN (22:17)
[2023-11-12] MEDS: CEFTRIAXONE 1 G in IV D5W 50 ML IV SCH (03:35)
[2023-11-12 08:00] VITALS: BP 101/48; TEMP 97.5; O2SAT 97
[2023-11-12] MEDS: LISINOPRIL (20MG) 20 MG TABLET PO SCH (09:00)
[2023-11-12] MEDS: CALCITRIOL 0.25 MCG CAPSULE PO SCH (09:24)
[2023-11-12] MEDS: SERTRALINE HCL 50 MG TABLET PO SCH (09:25)
[2023-11-12] MEDS: METHADONE HCL 10 MG TABLET PO SCH ×3 (09:25→17:14)
[2023-11-12] MEDS: MIDODRINE HCL (5MG) 5 MG TABLET PO SCH ×4 (09:26→19:42)
[2023-11-12] MEDS: POLYETHYLENE GLYCOL 3350 17 GM POWD.PACK PO SCH (09:27)
[2023-11-12] MEDS: PROSOURCE / PROSTAT (PYXIS) 30 ML UDC PO SCH ×3 (09:27→17:15)
[2023-11-12] MEDS: TRIAMCINOLONE OINT 0.1% 15 GM TUBE TP SCH ×2 (09:29→17:14)
[2023-11-12] MEDS: THERAHONEY GEL 1.5 OZ TUBE TP SCH (09:29)
[2023-11-12 14:44] LABS: BASOPHILS # (AUTO) 0.2 K/uL (0.0-0.2); BASOPHILS % (AUTO) 1.4 % (0.0-2.0); EOSINOPHILS # (AUTO) 0.1 K/uL (0.0-0.7); EOSINOPHILS % (AUTO) 1.1 % (0.0-6.0); HEMATOCRIT 24 % (33-45); HEMOGLOBIN 7.4 g/dL (11.5-14.8); LYMPHOCYTES # (AUTO) 1.6 K/uL (0.8-4.8); LYMPHOCYTES % (AUTO) 11.7 % (20.0-44.0); MEAN CORPUSCULAR HEMOGLOBIN 28 PG (26.0-33.0); MEAN CORPUSCULAR HGB CONC 30 g/dl (31.0-36.0); MEAN CORPUSCULAR VOLUME 91 fL (82-100); MONOCYTES # (AUTO) 0.5 K/uL (0.1-1.30); MONOCYTES % (AUTO) 3.8 % (2.0-12.0); NEUTROPHILS # (AUTO) 10.9 K/uL (1.8-8.9); PLATELET COUNT (AUTO) 167 K/uL (150-450); RED BLOOD CELL COUNT(AUTO) 2.68 MIL/uL (4.0-5.2); RED CELL DISTRIBUTION WIDTH 19.2 % (11.5-15.0); WHITE BLOOD COUNT (AUTO) 13.3 K/uL (4.3-11.0)
[2023-11-12 14:54] LABS: CALCIUM, SERUM 8.9 mg/dL (8.5-10.1); CREATININE 6.3 mg/dL (0.6-1.3); POTASSIUM 4.1 mmol/L (3.5-5.1)
[2023-11-12 16:00] VITALS: BP 125/59; TEMP 97.6; O2SAT 97
[2023-11-12] MEDS: ALBUMIN 25% 25 GM in PREMIX 1 EA IV PRN (17:08)
[2023-11-12 20:00] VITALS: BP 115/63; TEMP 97.3; O2SAT 94
[2023-11-12] MEDS: ATORVASTATIN 40 MG TABLET PO SCH (23:00)
[2023-11-13] MEDS: CEFTRIAXONE 1 G in IV D5W 50 ML IV SCH (03:21)
[2023-11-13] MEDS: diphenhydrAMINE HCL 50 MG/ML VIAL IV PRN (03:40)
[2023-11-13 07:30] VITALS: BP 109/27; TEMP 97.7; O2SAT 100
[2023-11-13] MEDS: LISINOPRIL (20MG) 20 MG TABLET PO SCH (09:00)
[2023-11-13] MEDS: CALCITRIOL 0.25 MCG CAPSULE PO SCH (09:00)
[2023-11-13] MEDS: MIDODRINE HCL (5MG) 5 MG TABLET PO SCH ×3 (09:01→18:05)
[2023-11-13] MEDS: POLYETHYLENE GLYCOL 3350 17 GM POWD.PACK PO SCH (09:01)
[2023-11-13] MEDS: PROSOURCE / PROSTAT (PYXIS) 30 ML UDC PO SCH ×3 (09:02→18:01)
[2023-11-13] MEDS: METHADONE HCL 10 MG TABLET PO SCH ×3 (09:02→18:04)
[2023-11-13] MEDS: SERTRALINE HCL 50 MG TABLET PO SCH (09:02)
[2023-11-13 09:17] LABS: CREATININE 5.2 mg/dL (0.6-1.3); POTASSIUM 4.2 mmol/L (3.5-5.1)
[2023-11-13] MEDS: HYDROCORTISONE 1% CREAM 28.35 GM TUBE TP PRN (10:23)
[2023-11-13] MEDS: TRIAMCINOLONE OINT 0.1% 15 GM TUBE TP SCH ×2 (10:23→18:05)
[2023-11-13] MEDS: THERAHONEY GEL 1.5 OZ TUBE TP SCH (10:24)
[2023-11-13 16:05] VITALS: BP 119/27; TEMP 97.5; O2SAT 100
[2023-11-13 19:00] VITALS: BP 119/60; TEMP 97.8; O2SAT 97
[2023-11-13] MEDS: ATORVASTATIN 40 MG TABLET PO SCH (22:44)
[2023-11-14 08:30] VITALS: BP 142/82; TEMP 98.2; O2SAT 100
[2023-11-14] MEDS: MIDODRINE HCL (5MG) 5 MG TABLET PO SCH ×3 (09:00→17:04)
[2023-11-14] MEDS: PROSOURCE / PROSTAT (PYXIS) 30 ML UDC PO SCH ×3 (09:00→17:00)
[2023-11-14] MEDS: CALCITRIOL 0.25 MCG CAPSULE PO SCH (10:04)
[2023-11-14] MEDS: LISINOPRIL (20MG) 20 MG TABLET PO SCH (10:04)
[2023-11-14] MEDS: SERTRALINE HCL 50 MG TABLET PO SCH (10:06)
[2023-11-14] MEDS: POLYETHYLENE GLYCOL 3350 17 GM POWD.PACK PO SCH (10:06)
[2023-11-14] MEDS: METHADONE HCL 10 MG TABLET PO SCH ×3 (10:07→17:05)
[2023-11-14] MEDS: THERAHONEY GEL 1.5 OZ TUBE TP SCH (10:27)
[2023-11-14] MEDS: TRIAMCINOLONE OINT 0.1% 15 GM TUBE TP SCH ×2 (10:28→17:00)
[2023-11-14 16:00] VITALS: BP 131/81; TEMP 98.4; O2SAT 97
[2023-11-14 20:00] VITALS: BP 120/46; TEMP 98.2; O2SAT 95
[2023-11-14] MEDS: ATORVASTATIN 40 MG TABLET PO SCH (22:02)
[2023-11-15] MEDS: HYDROCODONE/APAP 10/325MG TABLET PO PRN ×2 (01:30→09:41)
[2023-11-15] MEDS: HYDROCORTISONE 1% CREAM 28.35 GM TUBE TP PRN (02:30)
[2023-11-15] MEDS ORDERED: EPOETIN ALFA (10,000 UNIT) 10,000 UNIT/ML VIAL IV ONE (07:30)
[2023-11-15 08:00] VITALS: BP 125/52; TEMP 97.3; O2SAT 95
[2023-11-15] MEDS: LISINOPRIL (20MG) 20 MG TABLET PO SCH (09:39)
[2023-11-15] MEDS: POLYETHYLENE GLYCOL 3350 17 GM POWD.PACK PO SCH (09:39)
[2023-11-15] MEDS: CALCITRIOL 0.25 MCG CAPSULE PO SCH (09:40)
[2023-11-15] MEDS: MIDODRINE HCL (5MG) 5 MG TABLET PO SCH ×3 (09:40→17:00)
[2023-11-15] MEDS: METHADONE HCL 10 MG TABLET PO SCH ×3 (09:41→17:00)
[2023-11-15] MEDS: SERTRALINE HCL 50 MG TABLET PO SCH (09:41)
[2023-11-15] MEDS: THERAHONEY GEL 1.5 OZ TUBE TP SCH (09:42)
[2023-11-15] MEDS: TRIAMCINOLONE OINT 0.1% 15 GM TUBE TP SCH ×2 (09:43→17:46)
[2023-11-15] MEDS: PROSOURCE / PROSTAT (PYXIS) 30 ML UDC PO SCH ×3 (09:44→17:00)
[2023-11-15] MEDS ORDERED: EPOETIN ALFA (10,000 UNIT) 10,000 UNIT/ML VIAL SQ ONE (10:00)
[2023-11-15 16:00] VITALS: BP 109/43; TEMP 97.3; O2SAT 100
[2023-11-15 20:00] VITALS: BP 117/42; TEMP 97.6; O2SAT 93
[2023-11-15 21:23] LABS: BASOPHILS % (AUTO) 0.3 % (0.0-2.0); EOSINOPHILS # (AUTO) 0.1 K/uL (0.0-0.7); EOSINOPHILS % (AUTO) 0.5 % (0.0-6.0); HEMATOCRIT 26 % (33-45); HEMOGLOBIN 8.1 g/dL (11.5-14.8); LYMPHOCYTES # (AUTO) 1.2 K/uL (0.8-4.8); LYMPHOCYTES % (AUTO) 11.1 % (20.0-44.0); MEAN CORPUSCULAR HEMOGLOBIN 28 PG (26.0-33.0); MEAN CORPUSCULAR HGB CONC 32 g/dl (31.0-36.0); MEAN CORPUSCULAR VOLUME 89 fL (82-100); MONOCYTES # (AUTO) 0.3 K/uL (0.1-1.30); MONOCYTES % (AUTO) 2.7 % (2.0-12.0); NEUTROPHILS # (AUTO) 9.4 K/uL (1.8-8.9); NEUTROPHILS % (AUTO) 85.4 % (43.0-81.0); PLATELET COUNT (AUTO) 144 K/uL (150-450); RED BLOOD CELL COUNT(AUTO) 2.86 MIL/uL (4.0-5.2); RED CELL DISTRIBUTION WIDTH 18.6 % (11.5-15.0)
[2023-11-15 22:10] LABS: CALCIUM, SERUM 8.6 mg/dL (8.5-10.1); CREATININE 4.3 mg/dL (0.6-1.3); MAGNESIUM 1.6 mg/dL (1.8-2.4); PHOSPHORUS 3.9 mg/dL (2.5-4.9); POTASSIUM 3.6 mmol/L (3.5-5.1)
[2023-11-15] MEDS: ATORVASTATIN 40 MG TABLET PO SCH (23:42)
[2023-11-16 06:46] VITALS: BP 108/97; TEMP 97.6; O2SAT 100
[2023-11-16] MEDS: LISINOPRIL (20MG) 20 MG TABLET PO SCH (09:00)
[2023-11-16] MEDS: PROSOURCE / PROSTAT (PYXIS) 30 ML UDC PO SCH ×2 (09:00→12:47)
[2023-11-16 09:30] VITALS: BP 98/70; TEMP 94.3; O2SAT 100
[2023-11-16] MEDS: CALCITRIOL 0.25 MCG CAPSULE PO SCH (09:36)
[2023-11-16] MEDS: POLYETHYLENE GLYCOL 3350 17 GM POWD.PACK PO SCH (09:36)
[2023-11-16] MEDS: SERTRALINE HCL 50 MG TABLET PO SCH (09:36)
[2023-11-16] MEDS: MIDODRINE HCL (5MG) 5 MG TABLET PO SCH ×2 (09:37→12:47)
[2023-11-16] MEDS: METHADONE HCL 10 MG TABLET PO SCH ×2 (09:37→12:47)
[2023-11-16] MEDS: THERAHONEY GEL 1.5 OZ TUBE TP SCH (09:50)
[2023-11-16] MEDS: TRIAMCINOLONE OINT 0.1% 15 GM TUBE TP SCH (09:50)
[2023-11-16 12:47] VITALS: BP 72/50
== END 2023-11-16 18:12 | DRG 137 ==
LOC: ER 03:46 → TELE 11:30 → MED 11-09 10:08
PROVIDERS: ADMIT Nurse Practitioner Acute Care; ATTEND Internal Medicine
PROC: 05HA33Z Insertion of Infusion Device into Left Brachial Vein, Percutaneous Approach (ICD-10-PCS; 2023-11-03)
PROC: 5A1D70Z Performance of Urinary Filtration, Intermittent, Less than 6 Hours Per Day (ICD-10-PCS; principal; 2023-11-05)
PROC: 30233N1 Transfusion of Nonautologous Red Blood Cells into Peripheral Vein, Percutaneous Approach (ICD-10-PCS; 2023-11-11)
DX: J15.69 Pneumonia due to other Gram-negative bacteria (principal); J96.01 Acute respiratory failure with hypoxia; G93.40 Encephalopathy, unspecified; I50.33 Acute on chronic diastolic (congestive) heart failure; L89.116 Pressure-induced deep tissue damage of right upper back; E44.1 Mild protein-calorie malnutrition; R78.81 Bacteremia; L89.623 Pressure ulcer of left heel, stage 3; E11.22 Type 2 diabetes mellitus with diabetic chronic kidney disease; N18.6 End stage renal disease; D69.6 Thrombocytopenia, unspecified; I24.89 Other forms of acute ischemic heart disease; L89.126 Pressure-induced deep tissue damage of left upper back; E83.51 Hypocalcemia; D63.8 Anemia in other chronic diseases classified elsewhere; E88.09 Other disorders of plasma-protein metabolism, not elsewhere classified; E87.1 Hypo-osmolality and hyponatremia; E87.8 Other disorders of electrolyte and fluid balance, not elsewhere classified; I13.2 Hypertensive heart and chronic kidney disease with heart failure and with stage 5 chronic kidney disease, or end stage renal disease; E66.01 Morbid (severe) obesity due to excess calories; J44.9 Chronic obstructive pulmonary disease, unspecified; Z99.2 Dependence on renal dialysis; Z20.822 Contact with and (suspected) exposure to COVID-19; Z68.43 Body mass index [BMI] 50.0-59.9, adult; Z88.1 Allergy status to other antibiotic agents; Z79.01 Long term (current) use of anticoagulants; Z79.82 Long term (current) use of aspirin; Z79.02 Long term (current) use of antithrombotics/antiplatelets; Z79.899 Other long term (current) drug therapy; J44.0 Chronic obstructive pulmonary disease with (acute) lower respiratory infection; M19.90 Unspecified osteoarthritis, unspecified site; I87.8 Other specified disorders of veins; I89.0 Lymphedema, not elsewhere classified; D63.1 Anemia in chronic kidney disease; E78.5 Hyperlipidemia, unspecified; E87.6 Hypokalemia; I16.0 Hypertensive urgency; Z95.810 Presence of automatic (implantable) cardiac defibrillator; Z74.09 Other reduced mobility; B96.20 Unspecified Escherichia coli [E. coli] as the cause of diseases classified elsewhere
CPT/HCPCS: 36415; 71045-TC; 80048-TC; 80076-TC; 83605-TC; 83735-TC; 84100-TC; 84484-TC; 85025-TC; 86850-TC; 87040-TC; 87081-TC; 87186-TC; 90935-TC; A4216; A4223; A6253; A6403; G0378; J0696; J0885; J1170; J1200; J1644; J2405; J2997; J3010; J7030; J7040; J7042; J7050; J7060; P9047